=== PATIENT | male | born 1960 | race Caucasian/White ===

== ENCOUNTER 2022-02-06 17:32 | Emergency (ER) | payer OTHER ==
--- OUTSIDE RECORDS SUMMARY | 2022-02-06 17:43 | XMS REPORT | Continuity of Care Document ---
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 Haseeb medina ne -16 (Same As: l gluconate 22:00: Peridex) Herm nithin 1.2 MG/ML 00 Mouthwash Metoprolol 2019-0 No Notes: Memor ia 6-16 (Same as: l 19:59: Lopressor) [place] 00 Push over 2 minutes Mupirocin 2019-0 No 1 appl, Memor ia 0.02 MG/MG -16 Route: l Topical 19:59: NASAL, Bernardo Ointment 00 ONCE, Drug form: OINT, Start date: 02/14/20 14:59:00 CDT, Stop date: 02/14/20 14:59:00 CDT, 0 Sodium 2019- No 250 mL, Memoria Chloride -16 Rate: To l 0.9% 19:59: prime line [place] (titrate) 00 and flush 250 mL remaining blood products., Dosing Weight 78.682, kg, Route: IV, Total Volume: 250, Start Date: 02/14/20 14:59:00 CDT, Duration: 1 day, Stop date: 02/15/20 14:58:00 CDT, Replace Every: 24 hr, 0 Aspirin 81 No Notes: Do Me moria MG Enteric 16 not crush l Coated 14:00: or chew. [place] Tablet 00 (Same As: Ecotrin) Aspirin No Notes: Do Memor ia -16 not crush l 14:00: or chew. Bernardo 00 (Same As: Ecotrin) Protonix No Notes: Memoria 6-16 Tablet l 12:30: should not Bernardo 00 be chewed or crushed. (Same as: Protonix) remove No Notes: Memoria patch 16 Remove old l 07:00: patch Bernardo before applicatio n of new patch. WASTE: F/P - P Waste Black; E - P Waste Black Nicoderm No Notes: Memoria C-Q -16 (Same as: l 06:00: Habitrol) Bernardo "Remove old patch before applicatio n of new patch" WASTE: F/P - P Waste Black; E - P Waste Black atorvastati No Notes: Haseeb medina n -16 (Same as: l 02:00: Lipitor) Bernardo metoprolol No Notes: Memor ia tartrate -16 (Same as: l 02:00: Lopressor) Bernardo 00 Nicoderm No Notes: Memoria C-Q -16 (Same as: l 02:00: Habitrol) [place] "Remove old patch before applicatio n of new patch" WASTE: F/P - P Waste Black; E - P Waste Black BD Normal 2020-0 No Notes: Memori a Saline 6-16 Same as: l Flush 01:30: BD [place] 00 Posiflush Sterile Sodium 2020-0 No 250 mL, Memoria Chloride 6-16 Route: l 0.9% IV 01:30: IVPB, Bernardo 00 Start date: 02/13/20 20:30:00 CDT, Duration: 30 day, Stop date: 03/14/20 20:29:00 CDT, PRN Line Flush, 0 Heparin 60 2020-0 No Route: Memor ia unit/kg 6-16 IVP, PRN, l Bolus 00:57: 4,700 [place] (Heparin 00 unit, 4.7 Dosing mL, Drug Weight) form: INJ, PRN, Heparin Protocol, Start date: 02/13/20 19:57:00 CDT Stop date: 03/14/20 19:56:00 CDT, 30 day, 0 Heparin 30 2020-0 No Route: Memor ia unit/kg 6-16 IVP, PRN, l Bolus 00:57: 2,400 [place] (Heparin 00 unit, 2.4 Dosing mL, Drug Weight) form: INJ, PRN, Heparin Protocol, Start date: 02/13/20 19:57:00 CDT Stop date: 03/14/20 19:56:00 CDT, 30 day, 0 heparin 2020-0 No 500 mL, Memoria additive 6-16 Rate: l 25,000 unit 00:57: 18.88 Kirti nn [12 00 ml/hr, unit/kg/hr] Infuse + Premix over: 26.5 Diluent hr, Route: Dextrose 5% IV, Dosing 500 mL Weight 78.68 kg, Total Volume: 500 mL, Start date: 02/13/20 19:57:00 CDT, Duration: 30 day, Stop date: 03/14/20 19:56:00 CDT, 1.96, m2, 0 Nitroglycer 2020-0 No Notes: Haseeb medina in 0.4 MG 6-16 (Same l Sublingual 00:53: as:Nitroqu H ermann Tablet 00 ick, Nitrostat) "Do Not Crush" Sublingual tablet Zofran 2020-0 No Notes: Memoria 6-16 (Same as: l 00:52: Zofran) Bernardo 00 MEDICATION WASTE Product Size: 4 mg Product Wasted: ___ mg Tylenol 2019-0 No Notes: Do Memor ia 16 not exceed l 00:52: 4 gm/day. [place] 00 (Same as: Tylenol) Milk of 0 No Notes: Memoria Magnesia 16 (Same as: l 00:52: Milk of [place] 00 Magnesia, MOM) Morphine No Notes: Memoria 16 (Same l 00:52: as:MORPhin Bernardo 00 e Sulfate) Melatonin 2019- No Notes: Memori a -16 (Same as: l 00:48: Melatonin) Bernardo pantoprazol No 40 mg = 1 M emoria e 40 MG 6-15 tab, PO, l Enteric 23:29: Daily, 0 Deion n Coated 00 Refill(s) Tablet [Protonix] metoprolol No 25 mg = 1 Me moria tartrate 25 6-15 tab, PO, l mg oral 17:27: Q12H, 0 [place] tablet 00 Refill(s) Aspirin 81 2019-0 No 81 mg = 1 Me moria MG Enteric 6-15 tab, PO, l Coated 17:23: Daily, 0 [place] Tablet 00 Refill(s) atorvastati No 40 mg = 1 M emoria n 40 mg 6-15 tab, PO, l oral tablet 17:23: Bedtime, 0 [place] 00 Refill(s) heparin 2019-0 No 2,400 unit Haseeb medina 1000 6-15 = 2.4 mL, l units/mL 17:23: IVP, PRN, Herm nithin injectable 00 PRN solution Heparin Protocol, 0 Refill(s) Nitroglycer 0 No 0.4 mg = 1 Memoria in 0.4 MG 6-15 tab, SL, l Sublingual 17:23: Q5Min, PRN H ermann Tablet 00 Chest Pain, 0 Refill(s) Sodium 2019-0 No 750 mL, Memoria Chloride 6-15 Rate: 75 l 0.9% IV 750 17:04: ml/hr, Herm nithin mL 00 Infuse over: 10 hr, Route: IV, Dosing Weight 80 kg, Total Volume: 750, Start date: 02/13/20 12:04:00 CDT, Duration: 10 hr, Stop date: 02/13/20 22:03:00 CDT, 1.97, m2, 0 Heparin 60 2020-0 No Route: Memor ia unit/kg 6-15 IVP, PRN, l Bolus 16:46: 4,800 Bernardo (Heparin 00 unit, 4.8 Dosing mL, Drug Weight) form: INJ, PRN, Heparin Protocol, Start date: 02/13/20 11:46:00 CDT Stop date: 03/14/20 11:45:00 CDT, 30 day, 0 Heparin 30 2020-0 No Route: Memor ia unit/kg 6-15 IVP, PRN, l Bolus 16:46: 2,400 [place] (Heparin 00 unit, 2.4 Dosing mL, Drug Weight) form: INJ, PRN, Heparin Protocol, Start date: 02/13/20 11:46:00 CDT Stop date: 03/14/20 11:45:00 CDT, 30 day, 0 heparin 2020-0 No 500 mL, Memoria additive 6-15 Rate: 19.2 l 25,000 unit 16:46: ml/hr, Herm nithin [12 00 Infuse unit/kg/hr] over: 26 + Premix hr, Route: Diluent IV, Dosing Dextrose 5% Weight 80 500 mL kg, Total Volume: 500 mL, Start date: 02/13/20 11:46:00 CDT, Duration: 30 day, Stop date: 03/14/20 11:45:00 CDT, 1.97, m2, 0 Aspirin 2020-0 No 81 mg, Memoria 6-15 Route: l 16:20: CHEW, [place] 00 ONCE, Dosing Weight 80, kg, Start date: 02/13/20 11:20:00 CDT, Stop date: 02/13/20 11:20:00 CDT Saline 2020-0 No Notes: Memoria Flush 0.9% 6-15 (Same as: l 14:00: BD [place] 00 Posiflush) Sodium 2020-0 No 250 mL, Memoria Chloride 6-15 250 ml/hr, l 0.9% 14:00: Infuse [place] (Bolus) IV 00 Over: 1 hr, Route: IV, 250, Drug form: INJ, ONCALL, Priority: Routine, Dosing Weight 80 kg, Start date: 02/13/20 9:00:00 CDT, Duration: 1 doses or times, 0 Sodium 2019-0 No 750 mL, Memoria Chloride -15 Rate: 75 l 0.9% IV 750 13:40: ml/hr, Herm nithin mL 00 Infuse over: 10 hr, Route: IV, Dosing Weight 80 kg, Total Volume: 750, Start date: 02/13/20 8:40:00 CDT, Duration: 24 hr, Stop date: 02/14/20 8:39:00 CDT, 1.97, m2, 0 Protonix 2019-0 No Notes: For Mem oria 02-12 IV push l 12:30: reconstitu [place] 00 te with 10 ml 0.9% sodium chloride and push over 2 minutes. (Same as: Protonix) Nicotine No Notes: Memoria -15 (Same as: l 05:03: Habitrol) [place] 00 "Remove old patch before applicatio n of new patch" WASTE: F/P - P Waste Black; E - P Waste Black NS 1,000 mL 2019- No 1,000 mL, M emoria 15 Rate: 75 l 04:40: ml/hr, Bernardo 00 Infuse over: 13.3 hr, Route: IV, Dosing Weight 80.4 kg, Total Volume: 1,000, Start date: 02/12/20 23:40:00 CDT, Duration: 30 day, Stop date: 03/13/20 23:39:00 CDT, 1.98, m2, 0 Nitroglycer No Notes: Haseeb medina in 02-12 (Same l 04:38: as:Nitroqu Bernardo ick, Nitrostat) "Do Not Crush" Sublingual tablet Saline No Notes: Memoria Flush 0.9% 02-12 (Same as: l 04:38: BD [place] Posiflush) Omnipaque 0 No Notes: Memori a 350 02-12 (same l injectable 04:24: as:Omnipaq H ermann solution 00 ue 350). WASTE: F/P - Black; E - Municipal Trash Bin Aspirin 81 0 No 324 mg, Haseeb medina MG Chewable 02-12 Route: PO, l Tablet 00:43: Drug form: Kirti nn 00 CHEWTAB, ONCE, Dosing Weight 80.4, kg, Priority: STAT, Start date: 02/12/20 19:43:00 CDT, Stop date: 02/12/20 19:43:00 CDT metoprolol 2019-0 Yes 12.5mg Take 12.5 [facility] (LOPRESSOR) 6-15 mg by [place] 25 MG 00:00: mouth of tablet 00 daily. Medicin 12.5mg am, e 12.5mg pm metoprolol 2019-0 Yes 12.5mg Take 12.5 [facility] (LOPRESSOR) 6-15 mg by [place] 25 MG 00:00: mouth of tablet 00 daily. Medicin 12.5mg am, e 12.5mg pm Metronidazo Yes 500 mg = 1 Memoria le 500 MG 8-19 tab, PO, l Oral Tablet 17:39: Q8H, X 10 H ermann [Flagyl] day, # 30 tab, 0 Refill(s) ciprofloxac Yes 500 mg = 1 Memoria in 500 mg 8-19 tab, PO, l oral tablet 17:39: Q12H, X 10 [place] 00 day, # 20 tab, 0 Refill(s) predniSONE Yes 40 mg = 2 Me moria 20 mg oral 8-19 tab, PO, l tablet 17:39: Daily, Bernardo 00 after 2 weeks then taper by 10mg q weekly. ie 30mg/1 week then 20mg/1week then 10mg/week and stop., X 14 day, # 28 tab, 0 Refill(s) mesalamine Yes 800 mg = 2 M emoria 400 MG 8-19 cap, PO, l Enteric 17:39: TID, # 180 Herm nithin Coated 00 cap, 0 Capsule Refill(s) mesalamine No 4.8 gm, 4 Me moria 1200 MG 8-19 tab, l Enteric 14:00: Route: PO, Herm nithin Coated 00 Drug form: Tablet ECTAB, Daily, Dosing Weight 75.6, kg, Start date: 04/18/16 9:00:00 CDT, Duration: 30 day, Stop date: 05/17/16 9:00:00 CDT mesalamine No Notes: Memor ia 8-19 (Same as: l 14:00: Delzicol) Bernardo 00 Solu-Medrol No Notes: Haseeb medina 8-17 (Same l 21:00: as:Solu-ME Bernardo 00 DROL, A-Methapre d) ibuprofen No 400 mg = 2 Me moria 200 mg oral 8-17 tab, PO, l tablet 11:22: Q6H, PRN [place] Pain Famotidine No 1 tab, PO, M emoria 26.6 MG / 8-17 TID, PRN l Ibuprofen 11:22: Pain Bernardo 800 MG Oral 00 Tablet [Duexis] Flagyl No Notes: Memoria 8-17 (Same as: l 10:00: Flagyl) [place] Avoid alcohol. 200 ML No Notes: Do Memori a Ciprofloxac -17 not l in 2 MG/ML 10:00: refrigerat H ermann Injection e Ondansetron No Notes: Haseeb medina 8-17 (Same as: l 09:50: Zofran) [place] 00 MEDICATION WASTE Product Size: 4 mg Product Wasted: ___ mg Saline No Notes: Memoria Flush 0.9% -17 (Same as: l 09:50: BD [place] 00 Posiflush) Acetaminoph No Notes: Haseeb medina en 325 MG / 8-17 (Same as: l Hydrocodone 09:50: [place] Kirti nn Bitartrate 00 325/5) Do 5 MG Oral not exceed Tablet 4gm/day of acetaminop hen. Acetaminoph No Notes: Do M emoria en 8-17 not exceed l 09:50: 4 gm/day. [place] (Same as: Tylenol) Morphine No Notes: Memoria 8-17 (Same l 09:50: as:MORPhin Bernardo 00 e Sulfate) sodium No 1,000 mL, Memori a chloride -17 Rate: 125 l 0.9% 1000 09:48: ml/hr, Deion n ml INJ 00 Infuse 1,000 mL over: 8 hr, Route: IV, Dosing Weight 75.455 kg, Total Volume: 1,000, Start date: 04/16/16 4:48:00 CDT, Duration: 30 day, Stop date: 05/16/16 4:47:00 CDT Zosyn No Notes: Memoria 04-16 (Same as: l 08:04: Zosyn) Dosing based on Piperacill in component MEDICATION WASTE Product Size: 3375 mg Product Wasted: ___ mg Zofran No Notes: Memoria 04-16 (Same as: l 06:08: Zofran) MEDICATION WASTE Product Size: 4 mg Product Wasted: ___ mg Morphine No Notes: Memoria 04-16 (Same l 06:08: as:MORPhin e Sulfate) Saline No Notes: Memoria Flush 0.9% 04-16 (Same as: l 05:48: BD Bernardo 00 Posiflush) Sodium No 1,000 mL, Memori a Chloride 04-16 2,000 l 0.154 05:48: ml/hr, MEQ/ML 00 Infuse Injectable Over: 30 Solution minutes, Route: IV, 1,000, Drug form: INJ, ONCE, Priority: STAT, Dosing Weight 75.455 kg, Start date: 04/16/16 0:48:00 CDT, Duration: 1 doses or times, Stop date: 04/16/16 0:48:00 CDT Claritin 10 Yes Pascual G 10 mg, 1 Memoria mg oral 05-01 Garvin tab, PO, l tablet 04:42: Daily, 10 Deion n 54 tab, Substituti on Allowed, TAB Phenergan Yes Pascual G 25 mg, 1 M emoria 25 mg oral 05-01 Garvin tab, PO, l tablet 04:42: Q6H, PRN, Deion n 38 15 tab, Nausea, Substituti on Allowed [place] 5/325 Yes Pascual G 1-2 tab, Memoria oral tablet 05-01 Garvin PO, Q6H, l 04:42: PRN, 30 Bernardo 29 tab, Pain, Substituti on Allowed, Maintenanc e Reglan No Pascual G 10 mg, Memori a 05-01 Garvin Route: IV, l 02:51: ONCE, Dosing Weight 77.273, kg, Start date: 04/30/13 21:51:00, Stop date: 04/30/13 21:51:00 NS (Bolus) No Pascual G 1,000 mL, Memoria IV 1000 mL 05-01 Garvin Rate: l 02:51: 1,000 Bernardo 00 ml/hr, Infuse over: 1 hr, Route: IV, Dosing Weight 77.273 kg, Total Volume: 1,000, Priority: STAT, Start date: 04/30/13 21:51:00, Duration: 1 doses or times, Stop date: 04/30/13 22:50:00, Bolus DoseBolus Dose Benadryl No Pascual G 25 mg, Haseeb medina 05-01 Garvin Route: l 02:50: IVP, ONCE, Dosing Weight 77.273, kg, Priority: STAT, Start date: 04/30/13 21:50:00, Stop date: 04/30/13 21:50:00 Phenergan Yes Pascual G 25 mg, 1 M emoria 25 mg oral 4-13 Garvin tab, PO, l tablet 03:44: Q6H, PRN, Deion n 31 15 tab, Nausea, Substituti on Allowed [place] Yes Pascual G 1-2 tab, Memor ia 10/325 oral 4-13 Garvin PO, Q6H, l tablet 03:44: PRN, 30 Bernardo 29 tab, Pain, Substituti on Allowed, Maintenanc e Flagyl 500 Yes Pascual G 500 mg, 1 Memoria mg oral 4-13 Garvin tab, PO, l tablet 03:44: Q8H, 30 [place] 25 tab, Substituti on Allowed Cipro 500 Yes Pascual G 500 mg, 1 Memoria mg oral 4-13 Garvin tab, PO, l tablet 03:44: BID, 20 Bernardo 23 tab, Substituti on Allowed morphine No Pascual G 4 mg, 2 Mem oria Sulfate -13 Garvin mL, Route: l 03:21: IVP, Drug form: INJ, Q1H, Dosing Weight 81.818, kg, PRN Pain, Priority: NOW, Start date: 12/10/12 22:21:00, Duration: 3 doses or times, Stop date: Limited # of times Omnipaque 2012- No Melchor T 100 mL, Mem oria 300 12-10 400 ml/hr, l 23:22: Route: IV, Drug Form: SOLN, ONCE, Start date: 12/10/12 18:22:00, Stop date: 12/10/12 18:22:00 Zofran 2012- No Melchor T 4 mg, 2 Memori a 12-10 mL, Route: l 21:47: IVP, Drug form: INJ, ONCE, Dosing Weight 81.818, kg, PRN Nausea, Priority: STAT, Start date: 12/10/12 16:47:00 morphine 2012- No Melchor T 4 mg, 2 Haseeb medina Sulfate 12-10 mL, Route: l 21:47: IVP, Drug form: INJ, Q1H, Dosing Weight 81.818, kg, PRN Pain, Priority: NOW, Start date: 12/10/12 16:47:00, Duration: 3 doses or times, Stop date: Limited # of times Sodium No Melchor T 1,000 mL, Haseeb medina Chloride 12-10 Rate: 125 l 0.9% IV 21:45: ml/hr, [place] 1,000 mL 00 Infuse over: 8 hr, Route: IV, kg, Total Volume: 1,000, Start date: 12/10/12 16:45:00, Duration: 30 day, Stop date: 01/09/13 16:44:00 Saline No Melchor T 5 mL, Memoria Flush 0.9% 12-10 Route: l 21:45: IVP, Drug Form: INJ, Dosing Weight 81.818, kg, PRN, PRN Line Flush, Start date: 12/10/12 16:45:00, Duration: 24 hr, Stop date: 12/11/12 16:44:00 Advil 2012- Yes Substituti Memori a -12 on Allowed l 20:53: Bernardo 23 Zantac 2013-0 Yes Substituti Memor ia 4-12 on Allowed l 20:53: [place] 18 predniSONE 2011-08 Yes Fani See Haseeb medina 20 mg oral 1-25 Carlos Kent Instructio l tablet 04:38: ns, 3 po q Kirti nn 49 day for 3 days, then 2 po q day for 3 days then 1 po q day for 3 days., 18 tab, Substituti on Allowed3 po q day for 3 days, then 2 po q day for 3 days then 1 po q day for 3 days. Cipro 500 2011-08 Yes Chidi 500 mg, 1 Me moria mg oral 1-25 Rene tab, PO, l tablet 04:37: Yeaton Q12H, 6 Deion n 55 tab, Substituti on Allowed Flagyl 500 2011-08 Yes Chidi 500 mg, 1 M emoria mg oral 1-25 Rene tab, PO, l tablet 04:37: Yeaton Q8H, 30 Deion n 53 tab, Substituti on Allowed [place] 5/325 2011-08 Yes Chidi 1-2 Memor ia oral tablet 1-25 Rene tablets, l 04:37: Yeaton PO, Q4-6H, Kirti nn 47 PRN, 24 tab, as needed for pain, Substituti on Allowed, Maintenanc e Zofran ODT 2011-08 Yes Chidi 4 mg, 1 Mem oria 4 mg oral 1-25 Rene tab, PO, l tablet, 04:37: Yeaton TID, PRN, Her bellamy disintegrat 45 10 tab, ing Nausea and Vomiting, Substituti on Allowed methylPREDN 2011-08 No Chidi 125 mg, Me moria ISolone -25 Rene Route: l SODium 04:35: Yeaton IVP, ONCE, Her bellamy SUCCinate 00 Dosing Weight 81.818, kg, Priority: STAT, Start date: 07/24/12 22:35:00, Stop date: 07/24/12 22:35:00 morphine 2011-08 No Chidi 4 mg, Memoria Sulfate -25 Rene Route: l 03:02: Yeaton IVP, ONCE, Kirti nn 00 Dosing Weight 81.818, kg, Priority: STAT, Start date: 07/24/12 21:02:00, Stop date: 07/24/12 21:02:00 Omnipaque 2011-08 Yes Danish Marie 100 mL, 0 Memoria 300 1-25 ml/hr, l 02:37: Route: IV, [place] 00 Drug Form: SOLN, ONCE, Start date: 07/24/12 20:37:00, Stop date: 07/24/12 20:37:00 Sodium 2011- No Chidi 1,000 mL, Memor ia Chloride 1-24 Rene Rate: l 0.9% 23:21: Yeaton 1,000 Bernardo (Bolus) IV 00 ml/hr, 1,000 mL Infuse over: 1 hr, Route: IV, kg, Total Volume: 1,000, Bolus Dose, Priority: STAT, Start date: 07/24/12 17:21:00, Duration: 1 doses or times, Stop date: 07/24/12 18:20:00 Saline 2011-08 No Chidi 5 ml, Memoria Flush 0.9% 1-24 Rene Route: l 23:21: Yeaton IVP, Drug Deion n 00 Form: INJ, Dosing Weight 81.818, kg, PRN, PRN Line Flush, Start date: 07/24/12 17:21:00, Duration: 30 day, Stop date: 08/23/12 17:20:00 morphine 2011-08 No Chidi 4 mg, 2 Memor ia Sulfate 1-24 Rene mL, Route: l 23:21: Yeaton IVP, Drug Deion n 00 form: INJ, ONCE, Dosing Weight 81.818, kg, Priority: STAT, Start date: 07/24/12 17:21:00, Stop date: 07/24/12 17:21:00 ondansetron 2011-08 No Chidi 4 mg, 2 Me moria 1-24 Rene mL, Route: l 23:21: Yeaton IVP, Drug Deion n 00 form: INJ, ONCE, Dosing Weight 81.818, kg, Priority: STAT, Start date: 07/24/12 17:21:00, Stop date: 07/24/12 17:21:00 predniSONE 2011- Yes Tajuddin 40-30-20-1 Memoria taper daily - Qasimali 0 mg, PO, l 13:56: Vinicio Daily, [place] 00 Substituti on Allowed, 16 day uricct30 day regime Vicodin Yes Tajuddin 1-2 tab, Me moria 5/500 oral 05-26 Qasimali PO, Q4-6H, l tablet 13:53: Vinicio PRN, 30 Bernardo 31 tab, Pain, Substituti on Allowed, Maintenanc e Flagyl 500 Yes Tajuddin 500 mg, 1 Memoria mg oral 05-26 Qasimali tab, PO, l tablet 13:53: Vinicio Q8H, 42 [place] 00 tab, Substituti on Allowed, TAB Cipro 500 Yes Tajuddin 500 mg, 1 Memoria mg oral 05-26 Qasimali tab, PO, l tablet 13:52: Vinicio Q12H, 28 Deion n 48 tab, Substituti on Allowed, TAB GoLYTELY No Daljit L 4,000 ml, Memoria 05-25 Mariela Route: PO, l 21:23: Drug Form: [place] PDR/REC, Dosing Weight 72.415, kg, ONCE, NOW, Start date: 05/25/12 16:23:00, Duration: 1 doses or times, Stop date: 05/25/12 16:23:00 Vistaril 25 No Tajuddin 25 mg, 1 Memoria mg oral 05-25 Qasimali tab, l capsule 20:25: Vinicio Route: PO, Her bellamy Drug form: TAB, TID, Dosing Weight 72.415, kg, PRN Itching, Start date: 05/25/12 15:25:00, Duration: 30 day, Stop date: 06/24/12 15:24:00 Benadryl No Brent 50 mg, 2 Mem oria 05-24 Minhvu Joel tab, l 23:28: Wang Route: PO, [place] Drug form: TAB, QID, Dosing Weight 72.415, kg, PRN Itching, Start date: 05/24/12 18:28:00, Duration: 30 day, Stop date: 06/23/12 18:27:00 potassium No Caemron 40 mEq, 2 Me moria chloride 20 05-24 Amari tab, l mEq oral 14:29: Kent Route: PO, Jordy munoz tablet, 00 Drug form: extended ERTAB, release ONCE, Dosing Weight 72.415, kg, Start date: 05/24/12 9:29:00, Stop date: 05/24/12 9:29:00 NS + KCL 2011- No Cameron 1,000 mL, Mem oria 20mEq/L 05-23 Amari Rate: 100 l 1000ml 14:05: Kent ml/hr, Bernardo (Premix) 00 Infuse 1,000 mL over: 10 hr, Route: IV, kg, Total Volume: 1,000, Start date: 05/23/12 9:05:00, Duration: 30 day, Stop date: 06/22/12 9:04:00 vancomycin 2011- No Brent 250 mg, 5 Memoria 05-23 Minhvu Joel mL, Route: l 00:00: Wang PO, Drug [place] 00 form: SUSP, ABXQ6H, Dosing Weight 72.415, kg, Start date: 05/22/12 19:00:00, Duration: 30 day, Stop date: 06/21/12 13:00:00 Sodium 2011- No Cameron 1,000 mL, Memor ia Chloride 05-22 Amari Rate: 8.1 l 0.9% IV 21:00: Kent ml/hr, Bernardo 1,000 mL + 00 Infuse potassium over: 125 chloride 20 hr, Route: mEq + IV, kg, magnesium Total sulfate 1 Volume: gm 1,012, Start date: 05/22/12 16:00:00, Duration: 30 day, Stop date: 06/21/12 15:59:00 influenza 2011-0 Yes Brent 0.5 mL, Mem oria virus 05-22 Minhvu Joel Route: IM, l vaccine, 14:00: Wang Drug Form: Her bellamy inactivated 00 INJ, ONCE, Start date: 05/22/12 9:00:00, Stop date: 05/22/12 9:00:00 Flagyl 2011-0 No Brent 500 mg, Memori a 05-22 Minhvu Joel 100 mL, l 10:00: Wang Route: IV, [place] 00 Drug form: INJ, ABXQ8H, Dosing Weight 73.778, kg, Start date: 05/22/12 5:00:00, Duration: 30 day, Stop date: 06/20/12 21:00:00 influenza 2011-0 No SYSTEM 0.5 mL, Mem oria virus 05-22 SYSTEM Route: IM, l vaccine, 04:26: CINTHIADeion PARDO n inactivated 06 Start date: 05/21/12 23:26:06, Stop date: 06/20/12 23:21:06 potassium 2011-0 No Brent 10 mEq, Mem oria chloride - Minhvu Joel 100 mL, l 04:00: Wang Route: Bernardo 00 IVPB, Drug form: INJ, Q1H, Start date: 05/21/12 23:00:00, Duration: 4 doses or times, Stop date: 05/22/12 2:00:00 Saline 2011-0 No Brent 5 ml, Memoria Flush 0.9% 05-22 Minhvu Joel Route: l 03:02: Wang IVP, Drug Bernardo 00 Form: INJ, Dosing Weight 73.778, kg, PRN, PRN Line Flush, Start date: 05/21/12 22:02:00, Duration: 30 day, Stop date: 06/20/12 22:01:00 Sodium 2011-0 No Brent 1,000 mL, Haseeb medina Chloride 05-22 Minhvu Joel Rate: 125 l 0.9% IV 03:02: Wang ml/hr, [place] 1,000 mL 00 Infuse over: 8 hr, Route: IV, kg, Total Volume: 1,000, Start date: 05/21/12 22:02:00, Duration: 30 day, Stop date: 06/20/12 22:01:00 ondansetron 2011-0 No Brent 4 mg, 2 M emoria 05-22 Minhvu Joel mL, Route: l 03:02: Wang IVP, Drug Bernardo 00 form: INJ, Q6H, Dosing Weight 73.778, kg, PRN Nausea & Vomiting, Start date: 05/21/12 22:02:00, Duration: 30 day, Stop date: 06/20/12 22:01:00 morphine 2011-0 No Brent 4 mg, 2 Haseeb medina Sulfate - Minhvu Joel mL, Route: l 03:02: Wang IVP, Drug Bernardo 00 form: INJ, Q3H, Dosing Weight 73.778, kg, PRN Pain Score 4-6, Start date: 05/21/12 22:02:00, Duration: 30 day, Stop date: 06/20/12 22:01:00 acetaminoph 2011-0 No Brent 650 mg, 2 Memoria en 05-22 Minhvu Joel tab, l 03:02: Wang Route: PO, Drug form: TAB, Q4H, Dosing Weight 73.778, kg, PRN Pain/Fever , Start date: 05/21/12 22:02:00, Duration: 30 day, Stop date: 06/20/12 22:01:00 ALPRAZOLam 2011-0 No Brent 0.25 mg, 1 Memoria 05-22 Minhvu Joel tab, l 03:02: Wang Route: PO, Drug form: TAB, Q8H, Dosing Weight 73.778, kg, PRN Anxiety, Start date: 05/21/12 22:02:00, Duration: 30 day, Stop date: 06/20/12 22:01:00 temazepam 2011-0 No Brent 15 mg, 1 Me moria 05-22 Minhvu Joel cap, l 03:02: Wang Route: PO, Drug form: CAP, Bedtime, Dosing Weight 73.778, kg, PRN Insomnia, Start date: 05/21/12 22:02:00, Duration: 30 day, Stop date: 06/20/12 22:01:00 potassium 2011-0 No Brent 40 mEq, Mem oria chloride 05-22 Minhvu Joel Route: IV, l 03:02: Wang ONCE, Dosing Weight 73.778, kg, Start date: 05/21/12 22:02:00, Stop date: 05/21/12 22:02:00 morphine 2011-0 No Brent 4 mg, 2 Haseeb medina Sulfate 05-22 Minhvu Joel mL, Route: l 02:19: Wang IVP, Drug form: INJ, ONCE, Dosing Weight 73.778, kg, Priority: STAT, Start date: 05/21/12 21:19:00, Stop date: 05/21/12 21:19:00 acetaminoph 2011-0 No Gretchen S 1,000 mg, Memoria en 05-22 Tracy 2 tab, l 00:56: Route: PO, Drug form: TAB, ONCE, Dosing Weight 73.778, kg, Priority: STAT, Start date: 05/21/12 19:56:00, Stop date: 05/21/12 19:56:00 potassium 2011- No Gretchen S 40 mEq, 2 M emoria chloride 05-22 Tracy tab, l 00:53: Route: PO, Drug form: ERTAB, ONCE, Dosing Weight 73.778, kg, Priority: STAT, Start date: 05/21/12 19:53:00, Stop date: 05/21/12 19:53:00 Flagyl 2011- No Brent 500 mg, Memori a 05-22 Minhvu Joel 100 mL, l 00:52: Wang Route: IVPB, Drug form: INJ, ONCE, Dosing Weight 73.778, kg, Start date: 05/21/12 19:52:00, Stop date: 05/21/12 19:52:00 Cipro 2011- No Gretchen S 400 mg, Memoria 05-22 Tracy 200 mL, l 00:52: Route: IVPB, Drug form: INJ, ONCE, Dosing Weight 73.778, kg, Priority: STAT, Start date: 05/21/12 19:52:00, Stop date: 05/21/12 19:52:00 Omnipaque 2011- No Pascual G 100 mL, Me moria 300 05-21 Garvin 400 ml/hr, l 23:00: Route: IV, Drug Form: SOLN, ONCE, Start date: 05/21/12 18:00:00, Stop date: 05/21/12 18:00:00 morphine No Pascual G 2 mg, Memor ia Sulfate 05-21 Garvin Route: l 22:21: IVP, Drug form: INJ, ONCE, Dosing Weight 73.778, kg, Priority: STAT, Start date: 05/21/12 17:21:00, Stop date: 05/21/12 17:21:00 NS (Bolus) No Pascual G 1,000 mL, Memoria IV 1,000 mL 05-21 Garvin Rate: l 21:14: 1,000 Bernardo 00 ml/hr, Infuse over: 1 hr, Route: IV, kg, Total Volume: 1,000, Priority: STAT, Start date: 05/21/12 16:14:00, Duration: 1 doses or times, Stop date: 05/21/12 17:13:00, Bolus DoseBolus Dose Saline 2011- No Pascual G 5 ml, Memoria Flush 0.9% 05-21 Garvin Route: l 21:14: IVP, Drug Bernardo Form: INJ, Dosing Weight 73.778, kg, PRN, PRN Line Flush, Start date: 05/21/12 16:14:00, Duration: 30 day, Stop date: 06/20/12 16:13:00 ondansetron 2011- No Pascual G 4 mg, 2 Memoria 05-21 Garvin mL, Route: l 21:14: IVP, Drug Bernardo form: INJ, ONCE, Dosing Weight 73.778, kg, Priority: STAT, Start date: 05/21/12 16:14:00, Stop date: 05/21/12 16:14:00 morphine 2011- No Pascual G 2 mg, 1 Mem oria Sulfate 05-21 Garvin mL, Route: l 21:14: IVP, Drug Bernardo 00 form: INJ, ONCE, Dosing Weight 73.778, kg, Priority: STAT, Start date: 05/21/12 16:14:00, Stop date: 05/21/12 16:14:00 Cipro I.V. No Brent 400 mg, Me moria 400 mg/200 05-21 Minhvu Joel 200 mL, l mL 14:00: Wang Route: IV, Bernardo intravenous 00 Drug form: solution INJ, [id number], Dosing Weight 73.778, kg, Start date: 05/21/12 9:00:00, Duration: 30 day, Stop date: 06/19/12 21:00:00 tetanus-dip 2010- No Brittany 0.5 ml, M emoria htheria 09-06 Ronni Route: IM, l toxoids 02:08: ONCE, Bernardo adult 00 STAT, intramuscul Start ar date: suspension 09/05/10 20:08:00, Stop date: 09/05/10 20:08:00 Immunizations Ordered Immunization Filled Immunization Date Status Commen ts Source Name Name tetanus-diphtheria 2010-09-06 Completed Memori al toxoids 02:15:00 Bernardo tetanus-diphtheria 2010-09-06 Completed Memori al toxoids 02:15:00 Bernardo tetanus-diphtheria 2010-09-06 Completed Memori al toxoids 02:15:00 Bernardo Vital Signs Vital Name Observation Time Observation Value Comments Source Height 2021-07-27 06:13:00 177.8 CM Weight 2021-07-27 06:13:00 95.25 KG Systolic blood 2021-07-24 21:43:00 113 mm[Hg] [facility] Medicine Diastolic blood 2021-07-24 21:43:00 72 mm[Hg] [facility] Medicine Heart rate 2021-07-24 21:43:00 78 /min [facility] Body height 2021-07-24 21:43:00 172.7 cm [facility] Body weight 2021-07-24 21:43:00 81.647 [facility] BMI 2021-07-24 21:43:00 27.37 kg[facility] Systolic blood 2021-06-24 14:24:00 107 mm[Hg] [facility] Medicine Diastolic blood 2021-06-24 14:24:00 70 mm[Hg] [facility] Medicine Heart rate 2021-06-24 14:24:00 80 /min [facility] Body temperature 2021-06-24 14:24:00 37 Evelyn [facility] Respiratory rate 2021-06-24 14:24:00 16 /min [facility] Body height 2021-06-24 14:24:00 172.7 cm [facility] Body weight 2021-06-24 14:24:00 81.647 kg [facility] BMI 2021-06-24 14:24:00 27.37 kg/m2 [facility] Temperature Oral (F) 2021-03-11 18:30:00 98.2 F [facility] Heart Rate 2021-03-11 18:30:00 [facility] Respitory Rate 2021-03-11 18:30:00 [facility] Systolic (mm Hg) 2021-03-11 18:30:00 Haseeb rial [facility]ardo Diastolic (mm Hg) 2021-03-11 18:30:00 [facility] Temperature Oral (F) 2021-03-11 11:36:00 98.6 F [facility] Heart Rate 2021-03-11 11:36:00 [facility] Respitory Rate 2021-03-11 11:36:00 [facility] Systolic (mm Hg) 2021-03-11 11:36:00 Haseeb rial [facility] Diastolic (mm Hg) 2021-03-11 11:36:00 [facility] Temperature Oral (F) 2021-03-11 06:07:00 98.9 F [facility] Heart Rate 2021-03-11 06:07:00 [facility] Respitory Rate 2021-03-11 06:07:00 [facility] Systolic (mm Hg) 2021-03-11 06:07:00 Haseeb rial [facility] Diastolic (mm Hg) 2021-03-11 06:07:00 [facility] Systolic (mm Hg) 2021-03-04 04:39:00 Haseeb rial [facility]ardo Diastolic (mm Hg) 2021-03-04 04:39:00 [facility] Respitory Rate 2021-03-04 04:39:00 [facility] Heart Rate 2021-03-04 04:39:00 [facility] Temperature Oral (F) 2021-03-04 04:39:00 98.2 F [facility] Weight 2021-03-04 03:11:00 [facility] Systolic (mm Hg) 2021-03-04 03:11:00 Haseeb rial [facility] Diastolic (mm Hg) 2021-03-04 03:11:00 [facility] Heart Rate 2021-03-04 03:11:00 [facility] Respitory Rate 2021-03-04 03:11:00 [facility] Temperature Oral (F) 2021-03-04 03:11:00 98.1 F [facility] Systolic (mm Hg) 2020-08-25 10:27:00 Haseeb [facility] Diastolic (mm Hg) 2020-08-25 10:27:00 [facility] Respitory Rate 2020-08-25 10:27:00 [facility] Temperature Oral (F) 2020-08-25 10:27:00 98.6 F [facility] BMI Calculated 2020-08-25 09:15:00 [facility] Height 2020-08-25 08:56:00 172.72 cm [facility] BMI Calculated 2020-08-25 08:56:00 [facility] Weight 2020-08-25 08:56:00 [facility] Systolic (mm Hg) 2020-08-25 08:56:00 Haseeb rial [facility]ardo Diastolic (mm Hg) 2020-08-25 08:56:00 [facility] Heart Rate 2020-08-25 08:56:00 [facility] Respitory Rate 2020-08-25 08:56:00 [facility] Temperature Oral (F) 2020-08-25 08:56:00 98.8 F [facility] Temperature Oral (F) 2020-02-19 20:39:00 99.2 F [facility] Heart Rate 2020-02-19 20:39:00 [facility] Respitory Rate 2020-02-19 20:39:00 [facility] Systolic (mm Hg) 2020-02-19 20:39:00 Haseeb rial [facility] Diastolic (mm Hg) 2020-02-19 20:39:00 [facility] Temperature Oral (F) 2020-02-19 16:12:00 99.3 F [facility] Heart Rate 2020-02-19 16:12:00 [facility] Respitory Rate 2020-02-19 16:12:00 [facility] Systolic (mm Hg) 2020-02-19 16:12:00 H[facility]eb [facility] Diastolic (mm Hg) 2020-02-19 16:12:00 [facility] Temperature Oral (F) 2020-02-19 12:34:00 99.0 F [facility] Heart Rate 2020-02-19 12:34:00 [facility] Respitory Rate 2020-02-19 12:34:00 [facility] Systolic (mm Hg) 2020-02-19 12:34:00 Haseeb rial [facility] Diastolic (mm Hg) 2020-02-19 12:34:00 [facility] Height 2020-02-15 20:16:00 172.72 cm [facility] Height 2020-02-15 19:22:00 172.72 cm [facility] Height 2020-02-13 22:51:00 172.72 cm [facility] Weight 2020-02-13 22:51:00 [facility] BMI Calculated 2020-02-13 22:51:00 [facility] Systolic (mm Hg) 2020-02-13 20:30:00 Haseeb rial [facility]ardo Diastolic (mm Hg) 2020-02-13 20:30:00 [facility] Respitory Rate 2020-02-13 20:30:00 [facility] Temperature Oral (F) 2020-02-13 20:30:00 97.7 F [facility] Systolic (mm Hg) 2020-02-13 19:13:00 Haseeb rial [facility]ardo Diastolic (mm Hg) 2020-02-13 19:13:00 [facility] Respitory Rate 2020-02-13 19:13:00 [facility] Temperature Oral (F) 2020-02-13 19:13:00 98.2 F [facility] Systolic (mm Hg) 2020-02-13 18:15:00 Haseeb rial [facility] Diastolic (mm Hg) 2020-02-13 18:15:00 [facility] Respitory Rate 2020-02-13 18:15:00 [facility] Heart Rate 2020-02-13 16:48:00 [facility] Heart Rate 2020-02-13 12:44:00 [facility] Temperature Oral (F) 2020-02-13 12:44:00 97.4 F [facility] Heart Rate 2020-02-13 09:00:00 [facility] Height 2020-02-13 05:41:00 172.72 cm [facility] Weight 2020-02-13 05:41:00 [facility] BMI Calculated 2020-02-13 05:41:00 [facility] BMI Calculated 2020-02-13 04:38:00 [facility] Height 2020-02-13 00:24:00 172.72 cm [facility] BMI Calculated 2020-02-13 00:24:00 [facility] Weight 2020-02-13 00:24:00 [facility] Systolic (mm Hg) 2016-04-19 16:24:00 Haseeb rial [facility]ardo Diastolic (mm Hg) 2016-04-19 16:24:00 [facility] Respitory Rate 2016-04-19 16:24:00 [facility] Heart Rate 2016-04-19 16:24:00 [facility] Temperature Oral (F) 2016-04-19 16:24:00 98.2 F [facility] Systolic (mm Hg) 2016-04-19 11:06:00 Haseeb [facility] Diastolic (mm Hg) 2016-04-19 11:06:00 [facility] Respitory Rate 2016-04-19 11:06:00 [facility] Temperature Oral (F) 2016-04-19 11:06:00 97.7 F [facility] Heart Rate 2016-04-19 11:06:00 [facility] Respitory Rate 2016-04-19 08:17:00 [facility] Systolic (mm Hg) 2016-04-19 08:17:00 Haseeb [facility] Diastolic (mm Hg) 2016-04-19 08:17:00 [facility] Temperature Oral (F) 2016-04-19 08:17:00 96.9 F [facility] Heart Rate 2016-04-19 08:17:00 [facility] Weight 2016-04-16 09:51:00 [facility] Height 2016-04-16 09:51:00 172.72 cm [facility] BMI Calculated 2016-04-16 09:51:00 [facility] Weight 2016-04-16 04:41:00 [facility] Heart Rate 2013-05-01 04:53:00 [facility] Diastolic (mm Hg) 2013-05-01 04:53:00 [facility] Systolic (mm Hg) 2013-05-01 04:53:00 Haseeb rial [facility] Respitory Rate 2013-05-01 04:53:00 [facility] Respitory Rate 2013-05-01 02:11:00 [facility] Temperature Oral (F) 2013-05-01 02:11:00 98.5 F [facility] Diastolic (mm Hg) 2013-05-01 02:11:00 [facility] Heart Rate 2013-05-01 02:11:00 [facility] Systolic (mm Hg) 2013-05-01 02:11:00 Haseeb [facility] Height 2013-05-01 02:11:00 172.72 cm [facility] Weight 2013-05-01 02:11:00 [facility] Weight 2012-12-10 20:51:00 [facility] Height 2012-12-10 20:51:00 172.72 cm [facility] Weight 2012-07-24 22:45:00 [facility] Height 2012-07-24 22:45:00 172.72 cm [facility] Diastolic (mm Hg) 2012-05-26 06:08:00 [facility] Systolic (mm Hg) 2012-05-26 06:08:00 Haseeb rial [facility] Respitory Rate 2012-05-26 06:08:00 [facility] Heart Rate 2012-05-26 06:08:00 [facility] Temperature Oral (F) 2012-05-26 06:08:00 99.3 F [facility] Diastolic (mm Hg) 2012-05-25 21:09:00 [facility] Respitory Rate 2012-05-25 21:09:00 [facility] Systolic (mm Hg) 2012-05-25 21:09:00 Haseeb rial [facility] Heart Rate 2012-05-25 21:09:00 [facility] Temperature Oral (F) 2012-05-25 21:09:00 98 F [facility] Temperature Oral (F) 2012-05-25 15:54:00 99.1 F [facility] Heart Rate 2012-05-25 11:55:00 [facility] Systolic (mm Hg) 2012-05-25 11:55:00 Haseeb rial [facility]ardo Diastolic (mm Hg) 2012-05-25 11:55:00 [facility] Respitory Rate 2012-05-25 11:55:00 [facility] al [facility] Height 2012-05-22 03:10:00 172.72 cm [facility] Weight 2012-05-22 03:10:00 [facility] Weight 2012-05-21 20:54:00 [facility] Height 2012-05-21 20:54:00 172.72 cm [facility] Procedures Procedure Date / Time Performed Performing Clinician Sourc e Appendectomy [facility] Cholecystectomy [facility] Hernia repair [facility] Cholecystectomy [facility] Appendectomy [facility] Hernia repair [facility] Plan of Care Planned Activity Planned Date Details Comments Source Future Scheduled 2021-07-24 Screening for malignant [facility] 15:42:31 neoplasm of colon Medicine (procedure) [code = 565855633] Future Scheduled 2021-07-24 Pneumococcal Combined (1 [facility] 15:42:31 of 2 - PPSV23) [code = Medic ine Pneumococcal Combined (1 of 2 - PPSV23)] Future Scheduled 2021-07-24 TETANUS SHOT (ADULT) [facility] 15:42:31 [code = TETANUS SHOT Medicin e (ADULT)] Future Scheduled 2021-07-24 Hepatitis C screening [facility] 15:42:31 (procedure) [code = Medicine 659184565] Future Scheduled 2021-07-24 Human immunodeficiency B [facility] 15:42:31 virus screening Medicine (procedure) [code = 870013400] Future Scheduled 2021-07-24 ZOSTER VACCINE (1 of 2) [facility] 15:42:31 [code = ZOSTER VACCINE (1 Me dicine of 2)] Future Scheduled 2021-07-24 FLU VACCINE > 6 MONTHS B [facility] 15:42:31 [code = FLU VACCINE > 6 Medi cine MONTHS] Future Scheduled 2021-07-24 COVID-19 Vaccine (3 - [facility] 15:42:31 Booster for Pfizer Medicine series) [code = COVID-19 Vaccine (3 - Booster for Pfizer series)] Future Scheduled 2021-07-24 BMI FOLLOW UP PLAN [code [facility] 15:42:31 = BMI FOLLOW UP PLAN] Medici ne Future Scheduled 2021-06-26 Screening for malignant [facility] 16:16:23 neoplasm of colon Medicine (procedure) [code = 988973143] Future Scheduled 2021-06-26 TETANUS SHOT (ADULT) [facility] 16:16:23 [code = TETANUS SHOT Medicin e (ADULT)] Future Scheduled 2021-06-26 Hepatitis C screening [facility] 16:16:23 (procedure) [code = Medicine [id number]] Future Scheduled 2021-06-26 Human immunodeficiency B [facility] 16:16:23 virus screening Medicine (procedure) [code = 711376230] Future Scheduled 2021-06-26 ZOSTER VACCINE (1 of 2) [facility] 16:16:23 [code = ZOSTER VACCINE (1 Me dicine of 2)] Future Scheduled 2021-06-26 FLU VACCINE > 6 MONTHS B [facility] 16:16:23 [code = FLU VACCINE > 6 Medi cine MONTHS] Future Scheduled 2021-06-26 BMI FOLLOW UP PLAN [code [facility] 16:16:23 = BMI FOLLOW UP PLAN] Medici ne Encounters Start End Encounter Admission Attending Care Care Encounter Source Date/Time Date/Time Type Type Clinicians Facility Department ID 2022-01-01 Outpatient Eduardo, [facility] [id number] Common 10:32:03 [facility] 2022-01-01 2022-01-01 ambulatory [facility] [id number] Common 00:00:00 00:00:00 [facility] 2021-08-28 2021-08-28 Emergency E LORRAINE VIRIDIANA [facility] [id number] FB 00:52:00 05:57:00 ASTON 2021-07-27 2021-07-27 [id number] [facility] 06:12:00 08:57:00 [facility] 2021-07-24 2021-07-24 Office SELENA WEBB [id number] [facility] 15:18:25 16:26:55 Visit TRI AMBULATOR [id number] College Y 0.2.7.2.686 of [id number] Medi silverio 800 e 2021-07-19 2021-07-20 Outpatient E NATE [facility] MED [id number] [facility] 21:41:00 17:17:00 JONATHAN 2021-06-24 2021-06-24 Office SELENA Muniz [id number] [facility] 09:04:55 16:13:15 Visit Arash AMBULATOR [id number] College Y 0.2.7.2.686 of [id number] Medi silverio 300 e 2021-06-06 2021-06-06 Outpatient DOMINGO ROCK [facility] [id number] SLE 13:29:37 23:59:00 NEAL 2021-06-06 2021-06-06 Outpatient DOMINGO ROCK [facility] SLE [id number] SLE 13:15:27 13:14:00 NEAL 2021-04-09 2021-04-09 Outpatient SELENA MARKS BC [id number] [facility] 14:55:26 16:42:19 TRINITY Wang e of Medicin e 2021-03-11 2021-03-11 Emergency [facility]Fl[facility] [id number] [facility] 02:45:32 19:13:00 alpa Chang 14 l [facility] 2021-03-10 2021-03-11 Emergency E MARIANELA, [facility] [id number] [facility] 21:45:00 14:13:00 KRISSY 2021-03-10 2021-03-10 [facility] [id number] 16:56:00 21:15:00 RAFAEL 2021-03-04 2021-03-04 Emergency [facility] [id number] [facility] 02:46:56 04:58:00 alpa Chang 12 l [place] [facility] 2021-03-03 2021-03-03 Emergency E [id number] 21:46:00 23:58:00 2020-08-25 2020-08-25 Emergency [facility]Fl[facility] [id number] [facility] 08:53:15 10:41:00 alpa Chang 11 l [place] [facility] 2020-02-13 2020-02-19 Inpatient [facility] [id number] [facility] 22:49:00 22:56:00 alpa Chang 67 l [facility] 2020-02-13 2020-02-19 Inpatient ELOISA, [facility] MED [id number] [facility] 17:49:00 17:56:00 ESTHERWOOD 2020-02-13 2020-02-13 Observatio [facility] [id number] [facility] 00:07:14 22:16:00 n alpa Chang 10 l [place] [facility] 2020-02-12 2020-02-13 Outpatient E KATHERIN [facility] MED [id number] [facility] 23:17:00 17:16:00 AMIR 2019-03-28 2019-03-28 Outpatient C TRES [facility] RAD 700 [id number] [facility] 12:31:00 23:59:00 Ronda VELEZ [facility] 2017-03-27 2017-03-27 Outpatient C CRISTIANA MATTA [facility] RAD [id number] [facility] 09:10:00 23:59:00 [facility] 2016-04-16 2016-04-19 Inpatient nullFlavo [facility] [id number] [facility] 04:28:00 21:24:00 [facility] [place] 09 l [place]irti nn 2013-04-30 2013-04-30 Emergency nullFlavo [id number] [facility] 20:59:00 23:54:00 r [place] 08 l [facility] 2012-12-10 2012-12-10 Emergency nullFlavo [id number] [facility] 15:41:00 23:34:00 r [place] 07 l Bernardo 2012-07-24 2012-07-24 Emergency nullFlavo [id number] [facility] 16:33:00 22:59:00 r [place] 06 l Bernardo 2012-05-21 2012-05-26 Inpatient nullFlavo [id number] [facility] 15:41:00 11:35:00 r [place] 05 l [place] 2012-04-17 2012-04-17 Emergency nullFlavo [id number] [facility] 01:05:00 05:40:00 r [place] 04 l [facility] Results Test Description Test Time Test Comments Results Result Comments Source URINALYSIS 2021-07-27 08:42:00 Test Item Value Reference Range Interpretation Comme nts COLOR (test code = COLU) Yellow YELLOW CLARITY (test code = CLA) Clear CLEAR GLUCOSE UR (test code = UA GLUCOSE) Negative NEGATIVE BILI UR (test code = BILE) Negative NEGATIVE KETONES UR (test code = MIREILLE) Negative NEGATIVE SP GRAVITY (test code = SPGR) 1.020 1.005-1.030 PH UR (test code = PH) 5.0 4.5-8.0 PROTEIN UR (test code = PU) Negative NEGATIVE UROBIL UR (test code = UROQ) 0.2 EU/dL 0.2-1.0 NITRITE UR (test code = NITRITE) Negative NEGATIVE BLOOD UR (test code = UA BLOOD) Negative NEGATIVE LEUK ES UR (test code = LEUK) Negative NEGATIVE DRUGS OF [id number] 08:31:00 Test Item Value Reference Range Interpretation Comments DRUG SCRN (test code URINE DRUG SCREEN = HDOA) This is an unconfirmed screening result and should not be used for non-medical purposes CANNABINOD (test code NEGATIVE NEGATIVE = 88C) AMPHETAMINE (test NEGATIVE NEGATIVE code = 84A) BENZODIAZP (test code NEGATIVE NEGATIVE = 86A) BARBITURAT (test code NEGATIVE NEGATIVE = 85A) OPIATES (test code = NEGATIVE NEGATIVE 92B) COCAINE (test code = NEGATIVE NEGATIVE 87A) PHENCYCLID (test code NEGATIVE NEGATIVE = 66A) METHADONE (test code NEGATIVE NEGATIVE = 64A) DOAH (test code = DOAH.) *URINE DRUGSCREEN Cut-off values are as follows: Cannabinoids 50 ng/mL Cocaine 300 ng/mL Amphetamines 1000 ng/mL Phencyclidine 25 ng/mL Benzodiazepines 200 ng.mL Methadone 300 ng/mL Barbiturates 200 ng/mL Opiates 300 ng/mL CT HEAD W/O [id number] 07:19:14 [facility] SH[facility]BAZ CARTY : 1960 Sex: MEXAMINATION: CT HEAD WITHOUT IV CONTRAST.HISTORY: Altered mental status.COMPARISON: CT head 01/25/16.TECHNIQUE: Routine CT of the head was performed without intravenous contrast as per protocol. One or morethe following dose reduction techniques were used: Automated exposure control, adjustment of mA and/or kV according to patient size, and use of iterative reconstruction technique.FINDINGS: Brain Parenchyma: No hemorrhage or infarction. No mass effect or midline shift. There are low attenuation regionswithin the periventricular white matter, this is nonspecific, most commonly associated with microvascular ischemic changes. Atherosclerotic vascular calcifications.Extra Axial Spaces: Unremarkable.[place] tricular System: Unremarkable.Osseous Structures: Unremarkable.Visualized Paranasal Sinuses: Mucosal thickening involving bilateral ethmoid sinuses.IMPRESSION: No acute intracranial abnormality or he morrhage.Electronically signed by: Enriqueta Wood MD 07/27/2021 7:19 AM [facility] [id number] 07:14:00 Test Item Value Reference Range Interpretation Comments TROPONIN I (test code 6.97 pg/mL 0.00-45.20 = A84) Ref Range Change (test Please note the code = REF RANGE) change in reference range PRO TIME AND [id number] 07:12:00 Test Item Value Reference Range Interpretation Comments PT (test code = 11.3 s 9.8-13.6 TT) INR (test code = 1.0 INR) INRH (test code = SUGGESTED INRH) THERAPEUTIC RANGE FOR INR: 2.5 - 3.5 For Patients with Prosthetic Valves or Patients with recurrent Thromboembolic Events 2.0 - 3.0 For Most Other Applications PTT (test code = 32.6 s 20.2-38.0 PTT) PTTH (test code = To monitor the PTTH) effectiveness of heparin, we offer the Anti-Xa (Heparin Assay). It can be used for either unfractionated or LMW Heparin. Order Code is ANTI-XA [id number] 07:10:00 Test Item Value Reference Range Interpretation Comments ACETAMINPH (test code = <0.2 mg/dL 1.2-2.5 L 94M) Ref Range Change (test Please note the code = REF RANGE) change in reference range LIVER [id number] 07:10:00 Test Item Value Reference Range Interpretation Comments BILI TOTAL (test code 0.4 mg/dL 0.2-1.0 = 11A) BILI DIRCT (test code 0.1 mg/dL 0.0-0.3 = 12A) BILI INDIR (test code 0.3 mg/dL See_Comment [Auto mated message] = BILII) The system [employer] generated this result transmitted ref erence range: <=0.8. T he reference range was not used to interpr et this result as normal/abnormal . PROTEIN (test code = 7.2 g/dL 5.7-8.2 07D) ALBUMIN (test code = 4.7 g/dL 3.2-4.8 08D) GLOBULIN (test code = 2.5 g/dL 1.5-3.8 GLB) ALB/GLOB (test code = 1.9 1.0-2.6 AGRR) ALK PHOS (test code = 115 IU/L 46-116 35A) AST (test code = 30A) 31 IU/L See_Comment [Auto mated message] The system [employer] generated this result transmitted ref erence range: <=33. Th e reference range was not used to interpr et this result as normal/abnormal . ALT (test code = 31A) 43 IU/L 10-49 AMYLASE AND [id number] 07:10:00 Test Item Value Reference Range Interpretation Comments AMYLASE (test code = 10A) 60 U/L 30-118 LIPASE (test code = 60A) 40 IU/L 12-53 AMMONIA [id number] 07:09:00 Test Item Value Reference Range Interpretation Comments AMMONIA (test code = 54A) <10 umol/L 11-32 L [id number] 07:09:00 Test Item Value Reference Range Interpretation Comments SALICYLATE (test code = 94B) <3.0 mg/dL 15.0-30.0 L ALCOHOL BLOOD (ETOH)2021-07-27 07:07:00 Test Item Value Reference Range Interpretation Comments ETOH (test code = ETHANOL HALC) The result is to be used only for medical purposes ALCOHOL (test 213 mg/dL See_Comment H [Automated me ssage] code = 56A) The system ic h generated this result transmit renetta reference range : <=10. The refer ence range was not u sed to interpret th is result as normal/abnormal . BASIC METABOLIC [id number] 07:07:00 Test Item Value Reference Range Interpretation Comments GLUCOSE (test code 94 mg/dL 75-100 = 06D) SODIUM (test code 142 mmol/L 136-145 = 01A) POTASSIUM (test 4.0 mmol/L 3.6-5.1 code = 01B) CHLORIDE (test 110 mmol/L 98-107 H code = 04A) CO2 (test code = 23 mmol/L 20- 02A) ANION GAP (test 13.0 mmol/L code = ANG) BUN (test code = 13 mg/dL 9- 05D) CREATININE (test 1.0 mg/dL 0.7-1.3 code = 03E) GFR (test code = 80 See_Comment L [Automated GFR) mL/min/1.73m\\S\\2 message] Th e system which generated this result transmit renetta reference range : >=90. The reference range was not used to interpret this result as normal/abnormal . GFR 93 See_Comment [Automated MALTESE (test mL/min/1.73m\\S\\2 message] The code = GFRAA) system which generated this result transmit renetta reference range : >=90. The reference range was not used to interpret this result as normal/abnormal . EGFR (test code = eGFR BY EGFR) CKD-EPI CALCULATION IS NOT RECOMMENDED FOR PATIENTS UNDER 18 YEARS OF AGE. BUN/CREA (test 08-19 code = BCR) CALCIUM (test code 8.7 mg/dL 8.3-10.6 = 09D) XR CHEST 1 VIEW [id number] 07:03:26 [facility] 1960 Sex: MEXAMINATION: XR CHEST 1 VIEWLOCATION: [id number]/CLINICAL HISTORY: Altered mental statusCOMPARISON:Chest x-ray January 25, 2016.TECHNIQUE: Frontal view of the chest.FINDINGS: Cardiomediastinal silhouette: Cardiac silhouette is normal in size. 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 The regional osseous structures are intact. Thoracic spine spondylosis noted.IMPRESSION: No acute cardiopulmonary findings.Electronically signed by: Luis Enrique Tran MD 07/27/2021 7:03 AM CHEMISTRY TECHNOLOGIST (INCLUDES AUTOMATED DIFFERENTIAL)2021-07-27 06:53:00 Test Item Value Reference Range Interpretation Comments WBC (test code = WBC) 9.3 10\\S\\3/uL 4.5-11.0 RBC (test code = RBC) 4.94 10\\S\\6/uL 4.20-5.60 HGB (test code = HBG) 16.0 g/dL 14.0-18.0 HCT (test code = HCT) 46.9 % 35.0-46.0 H MCV (test code = MCV) 94.9 fL 80.0-94.0 H MCH (test code = MCH) 32.4 pg 27.0-31.0 H MCHC (test code = MCHC) 34.1 g/dL 32.0-36.0 RDW (test code = RDW) 14.4 % 11.5-14.5 PLT (test code = PLT) 203 10\\S\\3/uL 130-400 MPV (test code = MPV) 11.6 fL 9.4-12.4 NEUTROP # (test code = NE#) 6.7 10\\S\\3/uL 2.0-8.0 LYMPH # (test code = LY#) 1.6 10\\S\\3/uL 1.2-4.0 MONOCYTE # (test code = MO#) 0.7 10\\S\\3/uL 0.0-1.1 EOSINOPH # (test code = EO#) 0.2 10\\S\\3/uL 0.0-0.7 BASOPHIL # (test code = BA#) 0.1 10\\S\\3/uL 0.0-0.3 IG # (test code = IG#) 0.07 10\\S\\3/uL 0.00-0.06 H NRBC # (test code = NRBC#) 0.00 10\\S\\3/uL 0.00-0.01 NEUTROPH % (test code = NE%) 72.2 % 35.0-73.0 LYMPH % (test code = LY%) 17.1 % 20.0-55.0 L MONO % (test code = MO%) 7.5 % 2.5-10.0 EOSINOPH % (test code = EO%) 1.8 % 0.0-5.0 BASOPHIL % (test code = BA%) 0.6 % 0.0-2.0 IG % (test code = IG%) 0.8 % 0.0-0.8 NRBC% (test code = NRBC%) 0.0 % 0.0-0.2 MANDIFF (test code = MDIFF) NO NO RBC MORPH (test code = RBCMOR) NORMAL CT, SPINE, CERVICAL, WITHOUT IV [id number] 15:51:00Unlisted Reason for Exam - Click Yes and Enter Reason Below->YesUnlisted Reason for Exam->[facility] : 1960 Sex: MFINAL REPORT Examination: CT cervical spine without contrast HISTORY: Neck pain. 61-year-old male with history of C2 fractures reported on outside MRI 03/11/2021.COMPARISON:No prior imaging of the cervical spine available for comparison at the time of interpretation. TECHNIQUE: Multidetector helical axial images were obtained without contrast from the foramen magnum to T1. Coronal and sagittal reformatted images were done. Bone and soft tissue windows were evaluated. Dose modulation, iterative reconstruction, and/or weight based adjustment of the mA/kV was utilized toreduce the radiation dose to as low as reasonably achievable. FINDINGS:Alignment:0.2 cm anterolisthesis of C2 vertebral body relative to C3. Atlantodental interval is preserved. Atlantooccipital and atlantoaxial joint spaces appear preserved.Normal cervical lordosis. Facet joint alignment is preserved. Vertebrae: Persistent comminuted, vertically oriented fracture lines visible involving the left posterior vertebral body and left lateral mass of C2 and involving the left transverse foramen, left transverse process and left atlantoaxial joint, with approximately 0.2 cm gap between fracture fragments. Persistent obliquely oriented fracture line visible involving the right lateral C2 vertebral body and right lateral mass of C2 involving the right atlantoaxial joint, with approximately 0.2 cm gap between fracture fragments posteriorly. Osseous fusion across the right facet joint at C2-3. Disc spaceheights: Multilevel mild to moderate loss of intervertebral disc space height, moderately at the C5-6 and C6-7 levels. Caliber of spinal canal: Developmentally normal. Posterior fossa and craniocervical junction: Foramen magnum patent. No Chiari 1 malformation.. Soft tissues: No abnormality.. Individual intervertebral disc levels:C2-C3: Mildly degenerated disc. Patent spinal canal and foramina.C3-C4:Mildly degenerated disc. Moderate left and mild right foraminal narrowing due to uncovertebral and facet arthrosis.Central disc protrusion effaces the ventral thecal sac, without significant spinal canal stenosis.C4-C5: Mildly degenerated disc. Mild bilateral foraminal narrowing due to facet and uncovertebral arthrosis. Central disc protrusion effaces the ventral thecal sac without significant spinalcanal stenosis.C5-C6: Moderately degenerated disc. Mild spinal canal stenosis due to disc osteophytecomplex. Severe bilateral foraminal narrowing due to facet and uncovertebral arthrosis.C6-C7: Moderately degenerated disc. Mild spinal canal stenosis due to disc osteophyte complex. Severe right and moderate left foraminal narrowing due to facet and uncovertebral arthrosis.C7-T1: Mildly degenerated disc. Patent spinal canal and foramina. Visualized lung apices:Paraseptal emphysema with blebs/bullae bilateral apices. IMPRESSION: 1.Obliquely oriented fracture line of the right vertebral body and right lateral mass at C2, as well as comminuted vertically oriented fracture of the left vertebral body, lateral mass and transverse process at C2 involving the left transverse foramen. Approximately 0.2 cmanterolisthesis of C2 on C3. 2.Mild degenerative spinal canal stenosis at C5-6 and C6-7. 3.Severe degenerative foraminal narrowing bilaterally at C5-6 and on the right at C6-7. Additional multilevel moderate and mild foraminal narrowing. Signed: Dara Figueredo [facility] Verified Date/Time: 06/06/2021 15:51:33 RAD, SPINE, CERVICAL, 2 OR 3 VIEWS 2021-06-06 13:47:00Reason for Exam:->Neck pain Reason for Exam:->Closed nondisplaces fracture of second cervical vertebra with delayed healinh, unspecified fracture morphology subsequent [facility] : 1960 Sex: MFINAL REPORT Radiographs of the cervical spine three views with flexi on and extension HISTORY: PainCOMPARISON: None available. FINDINGS:Bones:No acute displaced fracture. Osseous alignment is within normal limits. Joints:Scattered degenerative change most pronounced at C5/6 and C6/7. No subluxation on the flexion or extension images. Soft tissues:The soft tissues appear unremarkable. IMPRESSION: Scattered degenerative change most pronounced at C5/6 and C6/7. Nosubluxation on the flexion or extension images. Signed: Vania Torres [facility] Verified Date/Time: 06/06/2021 13:47:22 Reading Location: [facility] Reading Room [address] [place] [address] RIPQOEIX4636-04-84 06:59:00Not Detected (03/11/21 1:59 AM)[facility] [employer] BNHRYWE0918-52-65 06:57:00Negative (03/11/21 1:57 AM)[facility] ZpnrjteCFJWMCVHFZ0688-51-21 06:57:00 Test Item Value Reference Range Interpretation Comments PT (test code = PT) 12.5 s 12.0-14.7 [facility] IrcrrxnTTFZGUYQQK1299-59-69 06:57:00 Test Item Value Reference Range Interpretation Comments INR (test code = INR) 0.94 1 0.85-1.17 [facility] WlgoackYJCJIHDESM8927-54-70 06:57:00 Test Item Value Reference Range Interpretation Comments PTT (test code = PTT) 26.1 s 22.9-35.8 [facility] VKVXZNJ5916-86-73 03:41:00<0.02[facility] CARDIAC UHQBXWS0202-41-32 03:41:0051[facility] XOVDNLE5071-43-11 03:41:0067[facility]annCHEM NTCNV1095-41-58 03:41:62119Qqedgavw HermannCHEM GUYAK6985-24-70 03:41:0016[facility]annCHE[facility] VGVZD5294-37-24 03:41:001.04 [facility] FMDXA8715-91-13 03:41:20279Nahjretg HermannCHEM PANEL 2021-03-04 03:41:004.0[facility]annCHE[facility] UUVGH2370-81-22 03:41:30239Mfqxjzzw [facility]annCHE[facility] NTXZN6309-14-42 03:41:0029[facility]annCHE[facility] MRVXX9326-99-70 03:41:008.7[facility]annCHEM OEIMZ8457-10-54 03:41:006.7[facility]annCHE[facility] LNXZG8103-48-24 03:41:003.2[facility]annCHE[facility] TNEET8851-94-03 03:41:0038 [facility]annCHE[facility] HWLRC9148-75-08 03:41:0021[facility]annCHEM PANEL 2021-03-04 03:41:43436Uqohuvwl HermannCHEM SLLEO8444-27-65 03:41:000.2[facility]annCHE[facility] QPERG4453-91-00 03:41:009.0[facility]annCHE[facility] FHSZZ0341-52-94 03:41:00 Test Item Value Reference Range Interpretation Comments B/C Ratio (test code = B/C Ratio) 15 1 6-25 [facility] NFAAT3526-85-09 03:41:003.5[facility]annCHEM PANEL 2021-03-04 03:41:00 Test Item Value Reference Range Interpretation Comments A/G Ratio (test code = A/G Ratio) 0.9 1 0.7-1.6 [facility]CHE[facility] PYWMS1035-65-36 03:41:0077[facility]annCHEM PANEL 2021-03-04 03:41:61066Yxvvgzcc UslraepOQFEUYRCNW6523-65-46 03:41:0011.2[facility] HxemuxpRTNBBPEHRF7521-30-66 03:41:004.59[facility] TiqdewwGHEKPJMMQS4992-50-43 03:41:0014.7[facility] TrqwwwsKAUWUOINSE0703-72-38 03:41:0043.6[facility] SWFPTXRKAL1300-56-68 03:41:0095.0[facility] ItoypijCMQKROATMZ4827-38-23 03:41:00 Test Item Value Reference Range Interpretation Comments MCH (test code = MCH) 32.0 pg 27.0-31.0 [facility] OttmljrEWZQAAIYVJ4628-40-41 03:41:0033.7[facility]annHEMATOLOGY 2021-03-04 03:41:0014.8[facility] FdfuqljZQZLRGTGPF2964-52-02 03:41:37032Pozioxlq QfrtpyfMITJEJAKPQ8475-63-49 03:41:0010.3[facility] AwapetgWQAWLXFKDT5634-56-49 03:41:0070.0[facility] GoyenzpUYCZETHSKU2278-38-17 03:41:0017.6[facility] QXXLNOKWTV1348-63-74 03:41:007.6[facility] PnmrbyoDYRNIFPTLB5121-12-69 03:41:004.4 [facility] FltmjetQZDYDLRJFK6734-45-02 03:41:000.4[facility] HermannHEMATOLOGY 2021-03-04 03:41:007.8[facility] YisotuvACSUALSBGF7759-54-41 03:41:002.0[facility] KeazaayCTLAQRBWVJ3259-82-85 03:41:000.9[facility] EpoawfhIVQXEPRXNA6104-31-38 03:41:000.5[facility]annCARDIAC SKXCRSG0329-34-18 09:20:00<0.02[facility] RRRWCFT3664-94-79 09:20:0074[facility]annCHEM AUSKN0861-35-83 09:20:0097[facility]annCHEM KQIIP1412-01-68 09:20:0014[facility]annCHEM SHPQS2748-72-40 09:20:001.14[facility]annCHEM AVRZG2138-88-88 09:20:77716 [facility]annCHE[facility] IBLSH5514-49-90 09:20:003.8[facility]annCHEM PANEL 2020-08-25 09:20:29590Rmyranls HermannCHEM RLSTA4439-37-11 09:20:0028[facility]annCHEM XZFZJ0770-75-00 09:20:009.2[facility]annCHEM UNUSZ9360-93-63 09:20:007.2[facility]annCHE[facility] MVANP4750-92-70 09:20:003.6[facility]annCHEM XCJGQ5302-30-84 09:20:0029[facility]annCHEM JBOOH1396-01-47 09:20:0017 [facility]annCHE[facility] FZTOZ5890-66-89 09:20:69922Nexghbzj HermannCHEM PANEL 2020-08-25 09:20:000.3[facility]annCHEM RCIDD1444-78-79 09:20:004.8[facility]annCHEM KITKE0346-88-36 09:20:00 Test Item Value Reference Range Interpretation Comments B/C Ratio (test code = B/C Ratio) 12 1 6-25 [facility] HXCXS9557-71-61 09:20:003.6[facility]annCHEM PANEL 2020-08-25 09:20:00 Test Item Value Reference Range Interpretation Comments A/G Ratio (test code = A/G Ratio) 1.0 1 0.7-1.6 [facility]CHE[facility] CKWNB5223-37-78 09:20:0069[facility]annHEMATOLOGY 2020-08-25 09:20:0011.7[facility] VmbprwpAKSJZKZKZN6053-45-84 09:20:004.43[facility] PdgbfgySHLJJTXEDR0613-55-40 09:20:0014.2[facility] RsxttjqUSCKPXBCEI3919-07-92 09:20:0041.2[facility] VmkkpzhZOYTOVHEFR8922-98-10 09:20:0093.0[facility] NEZBDYXFLH5356-00-19 09:20:00 Test Item Value Reference Range Interpretation Comments MCH (test code = MCH) 32.0 pg 27.0-31.0 [facility] WsryczmWOMIWFQNEO7324-76-42 09:20:0034.4[facility]annHEMATOLOGY 2020-08-25 09:20:0015.4[facility] HbrpdkgUMLODIIJYJ8587-11-73 09:20:17530Nwijprar MplvcfiQIHJEPCHXK2690-26-68 09:20:0010.1[facility] MbupfseAPUYPUNWFY9042-59-01 09:20:0077.8[facility] OlbgmwjIRPFNMDCEK1938-01-01 09:20:0012.6[facility] VKHHZCUDBT2361-12-91 09:20:007.1[facility] HqzzxzaQNYIPTHGDT6154-97-81 09:20:001.8 [facility] DkmctobNOSTDWTECA9669-57-72 09:20:000.7[facility]annHEMATOLOGY 2020-08-25 09:20:009.1[facility] UxbsfqsZTHOWFUUEF4156-19-65 09:20:001.5[facility] RymrknwKKLVKUWDIR4421-44-60 09:20:000.8[facility] PcnjhztLWWWYXTWNS0172-84-99 09:20:000.2[facility] NtobbiiRDBDLWMSRN0966-86-14 09:20:000.1[facility] HermannCHEM QUHSH7002-73-59 08:33:001.9[facility]annCHEM LJFCV3219-38-16 08:33:0086 [facility]annCHEM AAMAI3475-70-12 08:33:0012[facility]annCHEM PANEL 2020-02-19 08:33:000.70[facility]annCHEM XHZLB9042-91-15 08:33:50504Xtzmizjj HermannCHEM HKULW3519-67-58 08:33:004.1[facility]annCHEM KVTOD7582-65-78 08:33:99116Hvjhxxvt HermannCHEM ZBAHH6264-52-80 08:33:0027[facility]annCHEM CNFKV1622-91-20 08:33:008.6[facility]annCHEM JXBKX7809-17-46 08:33:0011.1 [facility]annCHEM TYASB2333-63-77 08:33:98197Jooilxus HermannHEMATOLOGY 2020-02-19 08:33:0071.7[facility] QnfgmpfUXUFYIVNYF9528-92-80 08:33:0014.3[facility] CowgrkrPVQPDXHKCM2701-36-67 08:33:0010.6[facility] YlqnhifWQPXFOLQDG6075-58-84 08:33:002.7[facility] MsumojcZFCHXNMTAI9124-11-16 08:33:000.7[facility] SPFXDYMYHA3774-28-89 08:33:006.3[facility] JifrmclKESKCODLMV4490-85-25 08:33:001.3 [facility] XsqrewzMTOAJDDVZB2626-25-05 08:33:000.9[facility]annHEMATOLOGY 2020-02-19 08:33:000.2[facility] ZnjaepyEOINVHSGDK2587-42-91 08:33:000.1[facility] KjbhygiTFBFNHPBSW8105-63-40 08:33:008.8[facility] HljkscaHFZOVNCGJW4820-44-37 08:33:003.11[facility] WwiykqwKOKDHVCDUQ6323-72-46 08:33:009.2[facility] JFRBHPNYGY1820-78-24 08:33:0027.9[facility] AthdcqiHGWXDJZUNF4879-56-76 08:33:00 89.6[facility] QhxxwioVUNEOOLQIA9295-64-28 08:33:00 Test Item Value Reference Range Interpretation Comments MCH (test code = MCH) 29.7 pg 27.0-31.0 [facility] QemjiwtCGWQBOCOYF2775-04-88 08:33:0033.2[facility]annHEMATOLOGY 2020-02-19 08:33:0015.6[facility] SrygwqsVHQBLVZVDZ0890-83-33 08:33:15951Hgpibnji BdfnbwuNUEKNCEBGY4413-49-76 08:33:0010.4[facility] HermannCHEM ZUFPJ3483-44-36 08:24:002.1[facility] HermannCHEM JEVNC3266-11-20 08:24:0099[facility]annCHEM EOCQZ9132-62-58 08:24:0011[facility] HermannCHEM GOOMG2830-33-36 08:24:000.60 [facility]annCHEM GICYU0854-40-12 08:24:72301Vvkablcg HermannCHEM PANEL 2020-02-18 08:24:003.9[facility] HermannCHEM IVJUI2353-57-60 08:24:54464Mlhjtfsy HermannCHEM NBJSV3145-35-79 08:24:0029[facility] HermannCHEM REMRN4727-04-89 08:24:008.3[facility]annCHEM STOJG9552-57-55 08:24:009.9[facility]annCHEM ZBNMP5901-48-53 08:24:72240Ksrqfhhk OyndmljNJHHGZXURJ5727-82-37 08:24:0076.2 [facility] ZwqfssvEQESYTAEAN4613-78-95 08:24:0011.5[facility] HermannHEMATOLOGY 2020-02-18 08:24:0010.4[facility] GxkuibtSVSSOIHUFZ9064-57-56 08:24:001.5[facility] GnubmjlBWFLXMTABQ0856-45-65 08:24:000.4[facility] ArlwddsQPMYJZVWNN9043-05-58 08:24:007.7[facility] RldpgztXARKDIKDKZ9841-29-44 08:24:001.2[facility] WZGFWRDBGN8766-55-78 08:24:001.1[facility] JruktzvWHGWZOEWTU9534-20-15 08:24:000.2 [facility] LgounvpCNMXOGYHLY7621-22-28 08:24:0010.1[facility] HermannHEMATOLOGY 2020-02-18 08:24:003.10[facility] BcmrsueDBECFIHRMB6718-71-62 08:24:009.6[facility] HfmqcyjQUKZHRTVWP9803-77-88 08:24:0027.7[facility] MstigctBYJJHKDWPU8520-81-73 08:24:0089.5[facility] VyicupdQFLKTNZKLQ1765-64-65 08:24:00 Test Item Value Reference Range Interpretation Comments MCH (test code = MCH) 31.1 pg 27.0-31.0 [facility] EkgixisLEPPTVSODT5213-13-34 08:24:0034.7[facility]annHEMATOLOGY 2020-02-18 08:24:0015.4[facility] BnptswoRJRFUCVWHE7816-83-34 08:24:85982Tudxetzl UvjltboLQSAOGEPET2406-37-86 08:24:0010.7[facility] HermannCHEM WMVMY9432-10-80 19:42:002.0[facility] XzduhgaVIQUPAQUOHCC7701-42-49 19:42:004.1[facility] CHEM WXECS6631-45-04 08:47:001.6[facility]annCHEM ZEXLN2797-37-38 08:47:36196 [facility]annCHEM AFGTX4852-22-01 08:47:0010[facility]annCHEM PANEL 2020-02-17 08:47:000.70[facility]annCHEM HFCDV5320-02-33 08:47:50421Nplxndgt HermannCHEM GDPFO1389-24-91 08:47:19130Xbhucyrl HermannCHEM EECYY7482-12-72 08:47:0028[facility]annCHEM IKGYO3586-77-24 08:47:007.9[facility]annCHEM JYVMH6689-37-30 08:47:009.9[facility]annCHEM JSCJM0733-89-24 08:47:01558 [facility]annCHEM WQCLS1739-17-48 08:47:002.0[facility]annHEMATOLOGY 2020-02-17 08:47:00 Test Item Value Reference Range Interpretation Comments PT (test code = PT) 13.7 s 12.0-14.7 [facility] MdgnyngPYFFABYWAD0945-29-65 08:47:00 Test Item Value Reference Range Interpretation Comments INR (test code = INR) 1.05 1 0.85-1.17 [facility] OsjmzkhEUZBTPNJRK2010-28-74 08:47:00 Test Item Value Reference Range Interpretation Comments PTT (test code = PTT) 32.2 s 22.9-35.8 [facility] DatyyhrUGKNYZSKJO5462-76-18 08:47:0080.3[facility]annHEMATOLOGY 2020-02-17 08:47:008.6[facility] LxirhxiECLPWGTUNS0891-32-46 08:47:0010.2[facility] MjkoxnjPNJULRNLYE7119-48-55 08:47:000.5[facility] UxfzgyeFXDPKXLPMN5959-19-79 08:47:000.4[facility] CdmqgokBMIPGOHFHU0833-39-08 08:47:008.9[facility] GGXDQKARMR4019-82-87 08:47:001.0[facility] ShaffybVKJHJOVPIG8831-59-33 08:47:001.1 [facility] HtvxhfyYNEWSTVSHI6423-99-17 08:47:000.1[facility]annHEMATOLOGY 2020-02-17 08:47:0011.1[facility] AiowkfdGZOGTTOJDJ2037-38-32 08:47:002.99[facility] AsclicrLTNIUJXAJK8954-53-23 08:47:008.9[facility] VfoxkbzPHJJZDBZAU1335-68-25 08:47:0027.2[facility] VtlsurfQTYFPQMZOD0870-58-59 08:47:0091.0[facility] NGMSBRRRRM8323-28-16 08:47:00 Test Item Value Reference Range Interpretation Comments MCH (test code = MCH) 29.8 pg 27.0-31.0 [facility] YjytpcvVRTIUMAONY4170-33-35 08:47:0032.7[facility]annHEMATOLOGY 2020-02-17 08:47:0015.4[facility] EhjrdmlQNNHCJSVIA0745-96-13 08:47:56742Hgjqgiwf UqjjcfvVURYZLMCPD1956-09-21 08:47:009.4[facility] HermannPARATHYROID PROFILE 2020-02-17 08:47:001.12[facility] HermannPARATHYROID HCUXZRR7952-15-13 08:47:00 1.12[facility] HermannCHEM NTCLG6594-13-96 08:25:004.2[facility] HermannHEMATOLOGY 2020-02-16 08:25:00 Test Item Value Reference Range Interpretation Comments PT (test code = PT) 13.7 s 12.0-14.7 [facility] IydlhkpXVUKHEYJYB8012-05-83 08:25:00 Test Item Value Reference Range Interpretation Comments INR (test code = INR) 1.05 1 0.85-1.17 [facility] UaohfgjKDPQTMXSHB3682-68-17 08:25:00 Test Item Value Reference Range Interpretation Comments PTT (test code = PTT) 31.1 s 22.9-35.8 [facility] HermannPARATHYROID BOBYTQO2646-42-17 08:25:001.10[facility] PARATHYROID RNGLDCC4711-89-03 08:25:001.08[facility] MmctopdPKRUSCVRFA4788-59-88 22:23:00 Test Item Value Reference Range Interpretation Comments PT (test code = PT) 15.3 s 12.0-14.7 [facility] CsjrxgsVPFZIOECQJ1532-49-11 22:23:00 Test Item Value Reference Range Interpretation Comments INR (test code = INR) 1.20 1 0.85-1.17 [facility] QgzvaywSFIMPPTMIF3046-82-80 22:23:00 Test Item Value Reference Range Interpretation Comments PTT (test code = PTT) 42.1 s 22.9-35.8 [facility] HermannPARATHYROID PPHHKYN6648-94-56 22:23:001.11[facility] PARATHYROID WRFEDXU9300-03-48 22:23:001.09[facility] DnslvrbIYFNQHQSQS9942-51-38 18:00:08484Loinnzph QolfnzlMFWIJJPACI4456-95-58 18:00:00Normal (02/15/20 1:00 PM) [facility] NirulrvUFWJPNMALK4945-27-82 18:00:000.0[facility]annHEMATOLOGY 2020-02-15 18:00:002+ *ABN*(02/15/20 1:00 PM)[facility]annCHEM YIEYZ1074-16-00 07:20:00 Test Item Value Reference Range Interpretation Comments B/C Ratio (test code = B/C Ratio) 16 1 02-22 [facility]annCHE[facility] KSGZX1026-85-30 07:20:006.8[facility]annCHEM PANEL 2020-02-15 07:20:003.0[facility]annCHEM LPRJR7282-67-34 07:20:003.8[facility]annCHEM QOYTU7434-62-20 07:20:00 Test Item Value Reference Range Interpretation Comments A/G Ratio (test code = A/G Ratio) 0.8 1 0.7-1.6 [facility]annCHEM IQCRB6966-92-42 07:20:0023[facility] HermannCHEM PANEL 2020-02-15 07:20:0014[facility] HermannCHEM OYTRY8318-13-29 07:20:84165Bohafbic HermannCHEM COUAQ5266-31-23 07:20:000.4[facility] CrwljbkVOZVOWYWFV8683-12-35 07:20:000.1[facility] HermannBLOOD BANK BJXDAIY5293-10-36 21:54:00Negative (02/14/20 4:54 PM)[facility] HermannBACTERIAL - GMZEWLDQ0256-53-74 21:30:00Negative (02/14/20 4:30 PM)[facility] [employer] [facility] VULFMBD0455-90-04 19:59:00Product available (02/14/20 2:59 PM)[facility] IXUURFL2312-61-61 19:59:00 Product available (02/14/20 2:59 PM)[facility] AXTPEBD0548-42-32 19:59:00Product available (02/14/20 2:59 PM)[facility] ClubNext[facility] RESULTS 2020-02-14 19:59:00Product available (02/14/20 2:59 PM)[facility] [employer] [facility] MTHJWQD8467-99-36 00:11:00Negative (02/13/20 7:11 PM)[facility] 2020-02-13 19:04:00 Test Item Value Reference Range Interpretation Comments PTT (test code = PTT) 20.0 s 22.9-35.8 [facility] AustinCclduzaBTOFNVHWVP4827-68-77 19:04:00 Test Item Value Reference Range Interpretation Comments PT (test code = PT) 12.5 s 12.0-14.7 [facility] AustinEiexncjMOBMOPBMMU9472-82-17 19:04:00 Test Item Value Reference Range Interpretation Comments INR (test code = INR) 0.93 1 0.85-1.17 [facility] AustinXdeerhoEYZUCIICSE5690-04-47 19:04:0010.6[facility] HermannHEMATOLOGY 2020-02-13 19:04:004.60[facility] KdxuwetRUPYQIOANR1225-61-81 19:04:0013.4[facility] OmqipjmRCDBYJXKWK0707-69-31 19:04:0041.1[facility] ZhgxbqcLOYBWRPYMI7315-91-08 19:04:0089.4[facility] CujgmnsUSUFROEABV7290-07-29 19:04:00 Test Item Value Reference Range Interpretation Comments MCH (test code = MCH) 29.2 pg 27.0-31.0 [facility] ZkgrnijVAXNQFKDSW8955-85-70 19:04:0032.6[facility]HE[facility]OLOGY 2020-02-13 19:04:0015.1[facility] OrzzeyoQMMBGHSUJX0963-56-46 19:04:48459Cpucxelv VlfioqeFXESRAARNV9589-17-51 19:04:0010.5[facility] SvbwbvrSQPTFOSZLX9631-49-99 19:04:0065.8[facility] PwfscbeDHYKUXGQOM7697-41-50 19:04:0023.4[facility] PGCOBSINSA5961-88-38 19:04:006.5[facility] VcfosqrUNAYEKSSFL7378-84-14 19:04:003.2 [facility] GnkpcqdZZUJJTHFJA4524-20-14 19:04:001.1[facility]annHEMATOLOGY 2020-02-13 19:04:007.0[facility] NmdpcpmDVGASTMEPM1022-45-10 19:04:002.5[facility] IplzbjjJCKOQFCICL3712-28-93 19:04:000.7[facility] JcbnfukUUKLTZMSAH7886-97-00 19:04:000.3[facility] TbkkgztXPWJMTGNGA5868-36-62 19:04:000.1[facility]annCHEM CEUQK9150-90-50 14:07:0086[facility]annCHEM SAECR8289-33-07 14:07:0012 [facility]annCHE[facility] BIWDI7290-92-99 14:07:000.85[facility]annCHEM PANEL 2020-02-13 14:07:97651Eiavcmei HermannCHEM XPTJY3214-86-77 14:07:003.9[facility]annCHEM EGTFR2914-75-58 14:07:90245Qqgasqgu HermannCHEM FRMVD7019-51-09 14:07:0027[facility]annCHEM NVHHV5540-41-25 14:07:008.9[facility]annCHEM SEWQI6658-21-08 14:07:008.6[facility]annCHEM JZLZS7713-05-67 14:07:0094 [facility] RfzbxuqJKPGPHDARJ6621-47-43 14:07:0014.0[facility] HermannIMMUNOLOGY 2020-02-13 13:47:00Not Detected (02/13/20 8:47 AM)[facility]annCARDIAC ENZYMES 2020-02-13 08:38:000.14[facility]annCHEM HLEXG1460-24-83 08:38:002.3[facility]annCHEM MWEUB2573-36-70 08:38:002.6[facility] RytrfxjTXYCLBJUMW0840-55-88 08:38:00 Test Item Value Reference Range Interpretation Comments PTT (test code = PTT) 27.4 s 22.9-35.8 [facility] PbxdmqnWLQGWWQKHS9136-85-42 08:38:00 Test Item Value Reference Range Interpretation Comments PT (test code = PT) 12.6 s 12.0-14.7 [facility] PwkzpdbANUSANTOTO9556-84-73 08:38:00 Test Item Value Reference Range Interpretation Comments INR (test code = INR) 0.94 1 0.85-1.17 [facility] HhqfybyMXWYJD3162-91-38 08:38:90324Uzlrndgo OyzqlvwFJOEVC1532-63-11 08:38:97895Krgpphlg OlonjrsXALUGP7853-71-67 08:38:0031[facility] HermannLIPIDS 2020-02-13 08:38:00 Test Item Value Reference Range Interpretation Comments CHD Risk (test code = CHD Risk) 5.58 1 4.00-7.30 [facility] CtbuzgfPUHGEN1993-26-78 08:38:62565Ueqmzcaj DrgidgcCTNPCP1736-04-85 08:38:00 Test Item Value Reference Range Interpretation Comments VLDL (test code = VLDL) 29 1 [facility]annSPECIAL WQTEZINNQ3642-75-46 08:38:005.6[facility]annCARDIAC QJCIRFJ3123-72-15 05:44:000.15[facility]annCARDIAC EJGBPQS4742-02-38 03:06:00 0.12[facility]annCARDIAC UEACKSY7051-98-18 00:50:0074[facility]annCARDIAC TBOTJFB9724-81-87 00:50:0040[facility]annCHEM GLFXB0693-60-49 00:50:0095 [facility]annCHEM MZITY1108-46-19 00:50:0016[facility]annCHEM PANEL 2020-02-13 00:50:001.22[facility]annCHEM VJUWR9742-49-29 00:50:10315Epdkcglh HermannCHEM UTMML6410-22-34 00:50:003.9[facility]annCHEM NCULR6611-87-89 00:50:55685Qfdnytey HermannCHEM ZJHCD3237-46-47 00:50:0026[facility]annCHEM FQELE5945-03-37 00:50:008.6[facility]annCHEM GHGKD5854-61-19 00:50:007.2 [facility]annCHEM WMNCX2267-39-17 00:50:003.3[facility]annCHEM PANEL 2020-02-13 00:50:0026[facility] HermannCHEM SSMSI9962-99-93 00:50:0016[facility]annCHEM ZVLNT5646-01-92 00:50:58785Rgbsnagg HermannCHEM GCWNY2983-76-17 00:50:000.3[facility]annCHEM RKQTU2103-36-02 00:50:009.9[facility]annCHEM EFRQS7322-89-75 00:50:00 Test Item Value Reference Range Interpretation Comments B/C Ratio (test code = B/C Ratio) 13 1 6-25 [facility]CHE[facility] NNITC8502-04-82 00:50:003.9[facility]annCHEM PANEL 2020-02-13 00:50:00 Test Item Value Reference Range Interpretation Comments A/G Ratio (test code = A/G Ratio) 0.8 1 0.7-1.6 [facility]CHE[facility] GEGZW6775-43-47 00:50:0064[facility]annCHEM PANEL 2020-02-13 00:50:70581Vhyanfym HkgxujkZZUEIEAVYF1443-67-48 00:50:008.9[facility] QznkhnwUZHUDKNFYF1756-44-02 00:50:004.83[facility] StcrmgjOMOTFXPMWG4379-04-16 00:50:0014.1[facility] TbrriudZKGRRDLOZZ7199-98-41 00:50:0043.2[facility] KUUIQMWRRU6336-21-54 00:50:0089.4[facility] HnekqgqNPAZMGAKZN7147-83-08 00:50:00 Test Item Value Reference Range Interpretation Comments MCH (test code = MCH) 29.2 pg 27.0-31.0 [facility] VdyxigsESTGJGIQMC9084-17-07 00:50:0032.7[facility] HermannHEMATOLOGY 2020-02-13 00:50:0015.0[facility] UwrkwubVZIQCOXXIE2775-73-01 00:50:29248Vpmunclz ZowogazOBDNAZLQPX1832-28-05 00:50:0010.2[facility] WriilgeVVCZHCKGGC6003-84-03 00:50:000.59[facility] UuidbnnZOYSFJZZGY7325-24-20 00:50:0074.0[facility] DFECBDJXJS1988-68-37 00:50:0015.8[facility] DfljibxOABXBBWBGE2701-04-90 00:50:00 6.7[facility] MyapddfKYETEWDGYV1907-89-08 00:50:002.8[facility] HermannHEMATOLOGY 2020-02-13 00:50:000.7[facility] KvpzaxbJYOOCVUSNT1849-91-74 00:50:006.6[facility] YbpwumsDVKUHJDSNX3372-64-65 00:50:001.4[facility] OfssrfcMDCQJTCKWB2251-12-65 00:50:000.6[facility] UcggjgeXHGPIGWMVX3677-11-10 00:50:000.3[facility] MYCRYCKPKR2622-25-30 00:50:000.1[facility] HermannMRI UPPER EXT JOINT W/O CONTR 2019-03-28 11:31:21Exam: MRI of the right shoulder without contrastHistory: Pain with internal derangement and rotator cuff tearLocation: E6Ajzshjtdj: High- resolution multiplanar multiecho imaging of the right shoulderwas performed without contrast.Findings:There is severe fraying with at least severe partial thickness and what appearsto be a nonretracted full-thickness tear of the distal supraspinatus tendonseen best on coronal images 5 with mild free fluid in the subacromial andsubdeltoid bursa.The infraspinatus, biceps, subscapularis, and teres minor tendons are intact.No evidence of labral tear.No evidence of frac ture or marrow edema.The acromion is type II with moderate acromioclavicular hypertrophic changesandinferior spurring creating moderate impingement in the neutral position.No evidence of intramuscularedema or atrophy.Small effusion noted. Mild glenohumeral arthrosis.Glenohumeral ligaments are intact. Impression:1. Moderate acromioclavicular impingement with nonretracted full- thickness tearof the distal supraspinatus tendon with mild free fluid in the subacromial andsubdeltoid bursa.2. Glenohumeral arthrosis with joint effusion.CT ABDOMEN AND PELVIS WITH DSGBOANG6156-46-69 10:17:09CT abdomen and pelvis with contrastLocation Code: Q1VZUCYJIE HISTORY: RT FLANK PAINCOMPARISON: NoneTe chnique: Helical CT of the abdomen and pelvis was performed followingintravenous contrast. Thin section axial, sagittal and coronal images wereobtained. One or more of the following dose reduction techniques were used:Automated exposure control, adjustment of the mA and or KV according to patientsize,and/or utilization of iterative reconstruction technique. DLP: 1186mGy-cm.FINDINGS:The lung bases are clear. The liver, adrenal glands, kidneys, pancreas, and spleen are grosslyunremarkable. Large 6 cmcyst in the upper pole of the left kidney posteriorly.The gallbladder is surgically absent.The partially opacified loops of bowel demonstrate no focal thickening ordilatation. Previous appendectomy. There is no free peritoneal air or fluid. The abdominal aorta is normal in caliber and contour. There is noretroperitoneal mass or fluid collection. The urinary bladder is unremarkable.There is no pelvicmass or fluid collection. No evidence of diverticulitis.The bones, skin, and surrounding soft tissues are unremarkable.IMPRESSION: 1. 6 cm left renal cyst.2. Previous appendectomy and cholecystectomy.No acute intra-abdominal orpelvic pathology.ELECTROLYTES 2016-04-18 12:00:009.7[facility] VeuioxuZVNOECENTTFF1526-08-87 12:00:32253Nkujpqfz EuofrfsAENYSEGSCAOT3518-33-18 12:00:23330Blqbuoms PgvptxiUOJTSXDJQPBU4988-47-90 12:00:007[facility] QftdziiDNHYCDTNPGJG0007-88-77 12:00:000.74[facility] MZNPQIZQYQDC6338-60-95 12:00:82101Dngjwbri MxamaozLZOZFNZUXPVT5357-62-42 12:00:003.7[facility] RqgblnfBCTXREQIJJYH5050-97-26 12:00:0028[facility] HIIGYQZTGARP7267-84-53 12:00:05925Azymcyzb JpxhdknAJCMNLOWYCMQ7114-07-36 12:00:007.6[facility] JoeocwtDNBBGXGHMC6620-18-63 12:00:009.9[facility] FTRFTBQKCS3380-28-53 12:00:00 Test Item Value Reference Range Interpretation Comments MCH (test code = MCH) 31.8 pg 27.0-31.0 [facility] NhdssifTCBMOOJIWV4209-73-93 12:00:0032.8[facility] HermannHEMATOLOGY 2016-04-18 12:00:0013.9[facility] LwcermlEDONYRDFBZ5032-08-92 12:00:50661Zoysfbbg YgdesfrLTDUWUNRBW1922-34-77 12:00:0096.8[facility] PyokmnmYNDJPAUPAH5503-97-55 12:00:0031.1[facility] QttrunlTGOQXVLHIS5321-83-02 12:00:0012.1[facility] ODQSAGQWRD4399-05-22 12:00:003.21[facility] WgduifsGLELFGEIDQ5358-55-01 12:00:00 10.2[facility] FhxmtvrVNKTLDISJL8090-91-42 11:08:00Negative *NA*(04/17/16 6:08 AM) [facility] AND QJZRQ5269 22:49:00Positive *ABN*(04/16/16 5:49 PM)[facility]annCHEM DWTMB9810-36-31 22:13:001.8[facility] HermannELECTROLYTES 2016-04-16 22:13:003.7[facility] HcbuwztYVOBUNVHEM6078-12-08 22:12:0027[facility] ZuzkdowHBETNVGAUK5717-08-30 22:12:0032.3[facility] PcybetxITCAUCBCLB4188-89-43 22:12:0010.8[facility] OmmeuhtKRDNUNFVAI3812-41-75 22:12:0022.4[facility] PYAJDMFXPU6160-47-36 22:12:00Negative *NA*(04/16/16 5:12 PM)[facility] LMXAPEFRRG0806-61-75 22:12:00Negative *NA*(04/16/16 5:12 PM)[facility] YFJXBADHKO8018-06-30 22:12:00Negative *NA*(04/16/16 5:12 PM)[facility] FZATTEMNJG9721-15-23 15:42:0010.9[facility] PibfmsaJLVRZZZQWM3383-34-20 15:42:00 32.6[facility] RjwnhafHNAXQMGJCD7404-49-32 07:03:00 Test Item Value Reference Range Interpretation Comments PT (test code = PT) 13.3 s 12.0-14.7 [facility] EctsjabAPXGEAMRIF0039-52-10 07:03:000.98[facility]annHEMATOLOGY 2016-04-16 07:03:00 Test Item Value Reference Range Interpretation Comments PTT (test code = PTT) 30.0 s 22.9-35.8 [facility]annCHEM PFYYQ7025-11-36 05:55:0096[facility]annCHEM PANEL 2016-04-16 05:55:000.4[facility]annCHEM NEJHH5585-92-83 05:55:000.86[facility]annCHEM TMOXH3275-96-93 05:55:0015[facility]annCHEM GJJVM7325-78-66 05:55:16649Qyhmifpv HermannCHEM JTDQR3157-56-40 05:55:13303Vxebjxjb HermannCHEM LNLGP3559-91-02 05:55:005.9[facility]annCHEM PCQNG5356-88-31 05:55:0027 [facility]CHE[facility] QKTHH4607-24-03 05:55:003.5[facility]annCHEM PANEL 2016-04-16 05:55:008.2[facility]annCHEM BNZAE7168-49-57 05:55:79225Xcntpcko HermannCHEM IHYUE1279-72-67 05:55:0015[facility]annCHEM DBGCO0861-04-61 05:55:0096[facility]annCHEM XUYRO9954-45-00 05:55:002.9[facility]annCHEM OAMYE2986-88-61 05:55:0021[facility]annCHEM AEVOR3049-06-18 05:55:009.5 [facility]CHE[facility] AFSVP4615-32-44 05:55:001.0[facility]annCHEM PANEL 2016-04-16 05:55:003.0[facility]annCHEM QGZIA5949-96-42 05:55:0017[facility]annCHEM AJAHL9388-26-92 05:55:0073[facility] KujusfmMKUBWHEYON3645-51-29 05:55:000.1[facility] XkelkivGQPIBSKMGS2794-56-67 05:55:000.3[facility] MGEEYSDXXQ2053-74-05 05:55:000.7[facility] QisjgrnRDVJLFXXFC9720-51-52 05:55:00 14.4[facility] WamrkejKSXFEVCVCW1195-19-62 05:55:000.5[facility] HermannHEMATOLOGY 2016-04-16 05:55:003.1[facility] WzzentlHUEREAQTUO8850-42-24 05:55:006.3[facility] FqgodzvMWFGUWMRYO0939-83-74 05:55:0075.7[facility] TzkigfgQHMVPWXGYP7026-86-31 05:55:001.5[facility] OvrlbhxEXHNJZKEMB1524-05-58 05:55:008.0[facility] NUYWEORADK6252-16-73 05:55:0013.8[facility] WrxeujrHBVTGJBRTZ8548-91-73 05:55:00 33.6[facility] RrqnbkgEZWFYXXWEF2241-01-78 05:55:00 Test Item Value Reference Range Interpretation Comments MCH (test code = MCH) 31.8 pg 27.0-31.0 [facility] DhvgxftQFYGPXRLFI6833-38-93 05:55:0094.7[facility] HermannHEMATOLOGY 2016-04-16 05:55:009.9[facility] DogdlvbJOXBBCPSFM9998-08-58 05:55:13869Yqpxxvxb CiqlmrrTQVLJCGEBZ4294-56-83 05:55:003.77[facility] GeqjyasYDFKRCKKIB5736-45-88 05:55:0010.6[facility] GFNPM8206-98-14 05:55:00Negative (04/16/16 12:55 AM)[facility] PGSCP0181-72-48 05:55:00Negative (04/16/16 12:55 AM)[facility] UNFXM1644-19-03 05:55:00Yellow *NA*(04/16/16 12:55 AM)[facility] HHLVA8893-89-66 05:55:00Negative (04/16/16 12:55 AM)[facility] NGAAR1222-61-05 05:55:00Negative (04/16/16 12:55 AM)[facility] SGJZE8924-97-33 05:55:00Negative *NA*(04/16/16 12:55 AM)[facility] TWNWV2513-88-50 05:55:00 Test Item Value Reference Range Interpretation Comments UA pH (test code = UA pH) 6.0 1 5.0-8.0 [facility] SKNEI1279-10-00 05:55:00>=1.030 *ABN*(04/16/16 12:55 AM)[facility] GJVKB0526-22-42 05:55:00Clear (04/16/16 12:55 AM) [facility] KUJXU8315-61-73 05:55:000.2[facility] BCKKR0207-01-76 05:55:00Negative (04/16/16 12:55 AM)[facility] RXPMX2810-20-94 05:55:00Small *ABN*(04/16/16 12:55 AM)[facility]annCHEMISTRY 2013-05-01 03:00:009.8[facility] CqzsgduCFYMHYESZ9770-30-37 03:00:008.5[facility] NhoxghjBNNCHCEHM5796-46-50 03:00:0030[facility] KshkfaoKEDPWLXQP7027-42-72 03:00:0096[facility] WexvcczJHYJMOIYL6578-95-13 03:00:003.8[facility] YLSNNJIHK0298-15-40 03:00:99175Dmoffpfm GlyiyyqVWQHLYPHR5865-59-13 03:00:53668 [facility] WccfyeuTLNCELDXO8385-86-50 03:00:0012[facility] HermannCHEMISTRY 2013-05-01 03:00:0091[facility] HicsbvrWVCNZDKKH6867-94-99 03:00:000.9[facility] PsgvdajVCVZYDYYWI5376-48-32 03:00:49336Nfiexovi PsrbipvQHTZVCHQYW2471-86-26 03:00:008.9[facility] BsrrmgrDVNDZAHNBM2339-07-68 03:00:0020.8[facility] TJZPEBLFCY3079-59-54 03:00:0031.9[facility] IaqjovbPEUADTTXUI3549-32-08 03:00:00 30.9[facility] JfmddqqZXSPNUNDTD5610-07-46 03:00:009.8[facility]annHEMATOLOGY 2013-05-01 03:00:003.92[facility] QgjpmsrLJMJXXANMO8128-21-54 03:00:009.3[facility] XvytkxrTHSOUBHNCZ4227-59-52 03:00:00 Test Item Value Reference Range Interpretation Comments MCH (test code = MCH) 25.1 pg 27.0-31.0 L [facility] FkarzxrZWXCMNCJZU6868-64-42 03:00:0078.8[facility]annHEMATOLOGY 2013-05-01 03:00:00Slight *ABN*(04/30/2013 22:00:00)[facility]annHEMATOLOGY 2013-05-01 03:00:00Slight (04/30/2013 22:00:00)[facility]annHEMATOLOGY 2013-05-01 03:00:001+ *ABN*(04/30/2013 22:00:00)[facility]annHEMATOLOGY 2013-05-01 03:00:001.3[facility] PucsyiiAEPPLXSICS6628-08-85 03:00:006.6[facility] ZjfqhyyTSVYYDJNUR9226-53-67 03:00:0013.9[facility] OarqgspAIKIRYPCKZ1044-47-80 03:00:000.1[facility] CrufgalQLJVMPFLVQ2645-76-73 03:00:000.5[facility] TGJDDNIXLV9500-14-98 03:00:000.8[facility] GmhdykqLNRXPABAIE7041-87-83 03:00:000.7 [facility] JqginrzBQHGYRESHA5985-24-58 03:00:005.7[facility]annHEMATOLOGY 2013-05-01 03:00:008.7[facility] YevxygtGRRHYGXKMD2834-02-72 03:00:0071.0[facility] OaotvjfGMUAYIFUKF7690-55-60 00:55:00Occasional /HPF (12/10/2012 19:55:00) [facility] IojbznpIJPSJSPZKK5372-43-72 00:55:000-2 /HPF (12/10/2012 19:55:00) [facility] UtwslevSDIEXWLTYB0246-45-82 00:55:00Negative (12/10/2012 19:55:00) [facility] PgkoadyAEFLHHTFRR1121-81-36 00:55:00 Test Item Value Reference Range Interpretation Comments UA pH (test code = UA pH) 7.0 1 5.0-8.0 N [facility] LdgugmvMYHHRLPDIA6179-54-39 00:55:00Negative (12/10/2012 19:55:00) [facility] FhnmjhqUZHSNWUEFQ0065-41-71 00:55:00Negative *NA*(12/10/2012 19:55:00) [facility] TbryafmQCFIMZLYOM0053-59-86 00:55:00Negative *NA*(12/10/2012 19:55:00) [facility] QllcjseXKTFWWJPJO0919-90-46 00:55:000.2[facility]annURINALYSIS 2012-12-11 00:55:00Negative (12/10/2012 19:55:00)[facility]annURINALYSIS 2012-12-11 00:55:00Performed (12/10/2012 19:55:00)[facility]annURINALYSIS 2012-12-11 00:55:00Occasional /LPF (12/10/2012 19:55:00)[facility] ZJCRKHYMJD5192-88-35 00:55:00Negative (12/10/2012 19:55:00)[facility] KNQXMQWLDA5334-50-82 00:55:000-2 /HPF (12/10/2012 19:55:00)[facility] DGLVZJCPLV2571-78-46 00:55:00Negative (12/10/2012 19:55:00)[facility] BSAZWWZJAL2068-49-83 00:55:00Clear (12/10/2012 19:55:00)[facility] UFTQKGOYPG9313-27-72 00:55:00Yellow *NA*(12/10/2012 19:55:00)[facility] NZCIVRPJG4966-52-74 22:20:0078[facility] BwwsvchUPLXMUJHO9189-37-81 22:20:0012 [facility] HizucluEVMXVZGND4611-78-24 22:20:004.5[facility] HermannCHEMISTRY 2012-12-10 22:20:0012.8[facility] TapnzzsHWTQWCSGS6116-03-25 22:20:000.6[facility] SeihuwzLYKLEEKHR7480-70-98 22:20:0086[facility] EevihxhHVJUQZLIO1012-87-37 22:20:001.0[facility] AzrwyliSYXMVDDYT0509-18-49 22:20:44019Gmkywisl [facility] DCJNKJEPW7198-27-67 22:20:0087[facility] NyyudvlVEEIXLNUH4441-47-89 22:20:0028 [facility] GwcanlvVMRCMTLRM3092-57-14 22:20:003.8[facility]annCHEMISTRY 2012-12-10 22:20:000.2[facility] BqlangeOHETAYUCO5411-31-78 22:20:0012[facility] FflkzccVXIEPFGLE5568-85-58 22:20:008.6[facility] GageilxSQUEGFQBX5552-01-15 22:20:70458Tpqglzas PeydebsGNEANEWQK9013-68-57 22:20:008[facility] HONUYQGFU9355-98-53 22:20:0012[facility] LplfkidEUAYBEITA4821-99-24 22:20:007.1 [facility] LhtsfsoTGOUEKUGP2448-69-48 22:20:0099[facility]annCHEMISTRY 2012-12-10 22:20:002.6[facility] VdpvabfOOJPNQPQFL5947-21-69 22:20:007.5[facility] UbfxcnaMQRFHCMDXL7042-53-59 22:20:000.8[facility] UlqjwdmZUIXSBHXUU9634-95-30 22:20:007.3[facility] XiabakkXCXPFNSJNM0637-73-45 22:20:001.3[facility] FXURVWJJFX0067-12-32 22:20:0012.3[facility] WxseglnXVJFALNOMA5181-99-87 22:20:00 1.0[facility] UmdrrbiFEHNVYOGLR0709-25-65 22:20:000.8[facility]annHEMATOLOGY 2012-12-10 22:20:000.1[facility] DvtnectPQSYFMDFCP9743-69-33 22:20:0069.8[facility] DbnkeblLVNWWVPNJZ7088-02-51 22:20:009.6[facility] AthtvdkFDJBQUYGTL7293-15-00 22:20:0010.5[facility] IrexaaxFINKNHYTXK8051-84-24 22:20:76339Wsfvofdc [facility] IOUMGNXXFB4159-08-41 22:20:0017.4[facility] YrxodslGJMQXMRQLI4752-59-47 22:20:00 8.7[facility] DkzpeogHDGZUFZQSE3144-12-01 22:20:0031.2[facility]annHEMATOLOGY 2012-12-10 22:20:0010.2[facility] MjdxbpyAYOGZSEBFH4299-42-46 22:20:003.74[facility] GvvqubsYCIAGSELEF9486-40-50 22:20:00 Test Item Value Reference Range Interpretation Comments MCH (test code = MCH) 27.3 pg 27.0-31.0 N [facility] VfgbhfvBGEDDDFHKZ1633-38-73 22:20:0083.3[facility]annHEMATOLOGY 2012-12-10 22:20:0032.8[facility] ZoceztsVNEXUMJPQL3051-69-98 01:50:003-5 /HPF *ABN*(07/24/2012 19:50:00)[facility] RiqvrlzAKVRKAOOMD3997-98-78 01:50:00Rare /LPF (07/24/2012 19:50:00)[facility]KzdielrYZLAAQXXXW2391-97-66 01:50:00Trace *ABN*(07/24/2012 19:50:00)[facility] AustinCsuruijADOWITWJYT8053-27-84 01:50:00 Occasional /HPF (07/24/2012 19:50:00)[facility] AustinJnyrecfAAMCAMHMOX2119-82-57 01:50:000-2 /HPF (07/24/2012 19:50:00)[facility] AustinIwjdizzXVINROLYQX6876-58-34 01:50:00Performed (07/24/2012 19:50:00)[facility] AustinReqzjobTCFTHSJQRA1510-30-57 01:50:000.2[facility] UzndrosYHIGHXENOZ2936-28-51 01:50:00Negative (07/24/2012 19:50:00)[facility]xyFMLDSGCPOA2977-43-01 01:50:00Negative (07/24/2012 19:50:00)[facility] HospitalZkwbuwdQFQGEPIAZG1255-17-08 01:50:00Negative (07/24/2012 19:50:00)[facility]ihqfqgYWVMFMLSXJ9620-77-68 01:50:00 Test Item Value Reference Range Interpretation Comments UA pH (test code = UA pH) 6.5 1 5.0-8.0 N [facility] HospitalFsxuxrlYFARVTSKHC2719-36-03 01:50:00Negative (07/24/2012 19:50:00) [facility] AustinUljzyacLZEHMDTQRK5309-35-84 01:50:00Negative *NA*(07/24/2012 19:50:00) [facility] HospitalApfeibkZXKNHAUDHE6372-94-16 01:50:00Negative *NA*(07/24/2012 19:50:00) [facility] AustinXgvbazkVQKIAIPHWH6712-82-58 01:50:00Clear (07/24/2012 19:50:00)[facility] HospitalIncazelBBCVNSXFKX1619-47-91 01:50:00Yellow *NA*(07/24/2012 19:50:00)[facility] AustinPwqrptqRIKVCRXKN5521-55-37 23:25:0030[facility] BghwyepSYJPYETYE2477-72-15 23:25:0072[facility] ObymdjdAQBHXBZNJ8556-04-37 23:25:009.8[facility] PTCVGDZMW4623-09-02 23:25:0011[facility] BpqaawgSRWOMQKCK4537-85-46 23:25:004.2 [facility] LppwrekWOJJTCTOS0909-83-06 23:25:000.7[facility] HermannCHEMISTRY 2012-07-24 23:25:23655Hmzonhii MryfzzmCOOQRECMP0948-32-24 23:25:49314Gncpdmbs YalkvsvJZADZXVYD5614-26-76 23:25:000.4[facility] UfcjwmwCHTVROXGH0406-04-52 23:25:0028[facility] NllxgnoRGTMGMPHQ9281-16-69 23:25:0013[facility] VAATVKOJU3643-23-99 23:25:002.8[facility] KzulqxtJKORQGTJX7343-73-12 23:25:0026 [facility] EbadzfwUMPBLCNIK9544-17-40 23:25:008.7[facility] HermannCHEMISTRY 2012-07-24 23:25:007.0[facility] OkdmmnbKGUGOGYBO8052-28-24 23:25:008[facility] VvlroxmRVZHEJQHM7416-81-58 23:25:000.7[facility] VdvlcyeQXHWTHXKF7990-20-43 23:25:18025Fxtkqjnx HcrkhzaZAJWQHTVZ7462-77-74 23:25:0088[facility] CQIBSBIIT6514-42-94 23:25:38319Jslvrywm GyfuktwPLGKHFOCE8632-36-20 23:25:003.8 [facility] RwhizzhFZYPWUAMKX0439-63-72 23:25:000.3[facility]annHEMATOLOGY 2012-07-24 23:25:0079.0[facility] YiskyizDPHTZJQTIV4613-17-78 23:25:000.7[facility] ScelqysLNVPJDGWXV0689-02-75 23:25:000.0[facility] OuviaocCNNVPTZHAO3155-24-35 23:25:002.0[facility] FdnlzujJLMJPDJBCG0397-53-38 23:25:005.0[facility] XACRMSBSEP9613-13-67 23:25:003.0[facility] TbsgeerIXBPWAFMZX7738-60-48 23:25:00 11.0[facility] FnqaxnsIOUNTRWKPJ7543-48-88 23:25:00Slight *ABN*(07/24/2012 17:25:00)[facility] VwzmgucFGXVHPRWTY9028-17-01 23:25:00Normal (07/24/2012 17:25:00)[facility] AnhekxeBULXCRQMOB8541-29-51 23:25:00 Test Item Value Reference Range Interpretation Comments Tot Cell Ct (test code = Tot Cell Ct) 100 1 [facility] QupsldvCZLKMHKOEY5336-38-65 23:25:0011.2[facility] HermannHEMATOLOGY 2012-07-24 23:25:001.5[facility] CnqgslnMBGHWRLFQX1876-96-33 23:25:008.6[facility] BdnpbujRCWTXDWUYZ5677-08-92 23:25:78430Kfsbftgc XpejnfxRWPCZRJSPA4102-94-29 23:25:0016.8[facility] RdhwstpMYFTHIDTJU1754-51-38 23:25:0033.2[facility] ZANPCXRVWA8950-77-23 23:25:00 Test Item Value Reference Range Interpretation Comments MCH (test code = MCH) 29.1 pg 27.0-31.0 N [facility] KglctqkRKLNHMTBIN0135-77-92 23:25:0087.6[facility]annHEMATOLOGY 2012-07-24 23:25:0036.1[facility] RkwmztoZQDQYWTSRP2991-15-69 23:25:0012.0[facility] McmhyiyIBXAXLAWDW7526-83-52 23:25:004.12[facility] TbtjldxRURYKFFUDE3141-34-53 23:25:0013.6[facility] AvdvcopDLBUWAJXJ2249-64-11 10:55:006[facility] LYXFZOMXF3952-80-08 10:55:000.9[facility] AuumnlnSWXTGDQNW0691-69-14 10:55:97503 [facility] TendinrUGPJVJEYO3348-01-21 10:55:005.7[facility]annCHEMISTRY 2012-05-25 10:55:000.6[facility] KtoqtbuHVLEDVJWL6825-17-18 10:55:003.5[facility] OcultjrSKJFUVXFM2263-65-25 10:55:008[facility] VomldifHLTWMSISH6369-34-92 10:55:00 28[facility] GepqcyzVQQWHYISL8156-38-18 10:55:007.9[facility]annCHEMISTRY 2012-05-25 10:55:003.5[facility] VkfwrasDBWZADCPO9551-14-05 10:55:07466Niijokgz UqwblptAKJYNLSJW5095-60-39 10:55:0096[facility] EfsfudfEXWSYUSOF3316-77-83 10:55:0096[facility] LfbybwsAISENMAMI0885-84-10 10:55:000.4[facility] SMIVHLTNW2865-47-92 10:55:002.2[facility] RmzooaxOCVJVEDAX0050-56-61 10:55:0021 [facility] PbxrrhrDEWOIAUYR5180-41-73 10:55:0010.5[facility]annCHEMISTRY 2012-05-25 10:55:007[facility] WduleraVXAPPAWRJ4159-11-47 09:00:009[facility] TpkqbdyBPILSISNY8048-08-49 09:00:0012.3[facility] YcduuyfLEFJEHUWL8607-29-62 09:00:007[facility] QpgdjxlMBIEZPAJT8817-51-49 09:00:000.8[facility] JYHAXFOZT8986-42-35 09:00:0093[facility] RzxaywqPILXUENRB0550-96-82 09:00:005.7 [facility] MsqdpvsMPVTMTDBT9977-40-11 09:00:002.1[facility]annCHEMISTRY 2012-05-24 09:00:75913Wznaexvj VdkihhfGXUBSETPC8531-90-67 09:00:003.3[facility] AmhxlzrAOLEFIOZM6850-96-33 09:00:007.7[facility] CdljhqjMFEHKCBCY3108-23-91 09:00:008[facility] SoymgjtFMPWIXCZL0280-54-81 09:00:000.2[facility] NBVNEDJWT4533-43-64 09:00:93857Yhzvcnuc JlqsfifPECTJPQHG4649-90-42 09:00:0027 [facility] LqmtiuaPZYCNFMEP9277-99-06 09:00:0023[facility]annCHEMISTRY 2012-05-24 09:00:53429Bkbmrpll LotxyljCZLGQJGQVR7150-05-39 09:00:0090.5[facility] JcgzhjtFEKLVWZKCJ1908-83-93 09:00:0033.1[facility] BzvmagvIFDHNLWNCH9470-99-68 09:00:00 Test Item Value Reference Range Interpretation Comments MCH (test code = MCH) 30.0 pg 27.0-31.0 N [facility] LmdddhrGDPACNIEZN9319-96-29 09:00:0010.1[facility]annHEMATOLOGY 2012-05-24 09:00:0030.6[facility] EtoujxaLQNXMZUALW8940-79-81 09:00:009.4[facility] YjfrejnIRNNKJWCXQ0449-49-56 09:00:81619Qszfvdvh TchuhvmGGIDAIXURH9260-41-94 09:00:0015.8[facility] UotihweVSYGUERISY0642-84-24 09:00:003.38[facility] SIOAJNYADM5953-18-79 09:00:0010.5[facility] FgpeyoePVTECUQJLR9548-51-27 09:00:00 Normal (05/24/2012 04:00:00)[facility] GlpcvaaXWZVRBCAHY6932-28-12 09:00:000.0 [facility] GhgkgaoOMYEMKDJGT9314-12-17 09:00:00 Test Item Value Reference Range Interpretation Comments Tot Cell Ct (test code = Tot Cell Ct) 100 1 [facility] BiqbnbgDKFYARPUQC7701-33-87 09:00:00Normal (05/24/2012 04:00:00) [facility] VibvonyYZAPGGHAVM1552-32-02 09:00:000.9[facility]annHEMATOLOGY 2012-05-24 09:00:0058.0[facility] DsobtanQNYVIPJBVW2591-71-29 09:00:0026.0[facility] ZyfxsbeMAWCLAVPBW4199-64-66 09:00:000.3[facility] VoscgtuKNPIATHELZ4657-37-88 09:00:000.4[facility] WbymyfbGSQASTRDVG3371-83-59 09:00:009.0[facility] AGPQQBRELA8129-86-89 09:00:003.0[facility] DdmsgvsKAHVATRSZJ5290-73-25 09:00:004.0 [facility] YpvkjajBEOVRXZJXR8831-25-75 09:00:008.8[facility]annCHEMISTRY 2012-05-24 09:00:003.6[facility] YbmeeepFWRGKXLAV7571-42-79 09:00:000.6[facility] LyjcznaFHDUSQYCW8334-02-99 06:30:91274Pmtzqfro IoayfosYZVJGHPCS3473-42-39 06:30:80460Njlbgmly QqfjgemSDUPBWBPX7236-93-92 06:30:009[facility] GITCBDRSY2804-63-76 06:30:004[facility] YyvkpbkKDGALHCEZ2361-72-82 06:30:837911 [facility]annPARASITOLOGY - UDOPECDQ6813-91-75 22:30:00Negative (05/22/2012 17:30:00)[facility] JpiikluHHHOVQSWU5869-57-27 10:17:001.6[facility] AUIDZHNNB4908-58-95 10:17:0047[facility] EogdmggBWDAFLTDP0538-96-87 10:17:000.7 [facility] ExgkrcmEDOZLRBGI3095-25-77 10:17:0056[facility]annCHEMISTRY 2012-05-22 10:17:02168Oeqcttef KuogukuFGOGWVTYN0474-70-80 10:17:000.5[facility] TglmoalEQSGQJDZN4937-58-11 10:17:006[facility] HnahciaWBIUXMREJ0733-42-98 10:17:00 6.1[facility] PwoqpuqPQUDHFGOW0926-97-47 10:17:002.5[facility]annCHEMISTRY 2012-05-22 10:17:0023[facility] BjdgafhCIPXNLEDG5271-54-08 10:17:0012.5[facility] JgpapwuHCOIBPNWI8960-98-48 10:17:007.9[facility] MpozkrcVOFYINFNE7179-47-49 10:17:005[facility] TwwsradGLWBXFGGN7690-89-75 10:17:000.8[facility] EUFRDFWTW0727-48-04 10:17:85012Sfqrihfn XodfrbaMYXEBVDTY5138-78-14 10:17:003.6 [facility] ObmoovyHXOCJAZOS3297-40-33 10:17:93983Ygbpaeew HermannCHEMISTRY 2012-05-22 10:17:003.5[facility] SqfzgtrLRTRKOIBX0514-77-94 10:17:91662Ntiaqgpq LyrvdakSHSJWOTNES5358-03-19 10:17:0010.9[facility] KjbrxqoRJPILKBWCH5177-43-39 10:17:0010.9[facility] CuorzcoOZZWZXTGHG9041-25-05 10:17:003.69[facility] RXIEWJBGFZ8456-50-08 10:17:00 Test Item Value Reference Range Interpretation Comments MCH (test code = MCH) 29.6 pg 27.0-31.0 N [facility] QratobjVRBUKPTHLV9691-39-03 10:17:0090.4[facility]annHEMATOLOGY 2012-05-22 10:17:0033.3[facility] QlsgkquIAGWQCBOZF7635-68-82 10:17:008.6[facility] OsefgrgHXJYQKAWXG8516-14-98 10:17:37342Ksifdmui WtojmdeONWRJJAHVH9488-90-66 10:17:0015.7[facility] LhllluxXGSKPLVXCG7778-70-12 10:17:0032.8[facility] NPCFCKACIG7565-21-88 10:17:00Normal (05/22/2012 05:17:00)[facility] DGTWVXLOGX0545-83-49 10:17:006.9[facility] WkhtbhvVJONDUBFFV5160-93-93 10:17:00 79.8[facility] AxmdhnlJLUFJSSVWD9059-39-61 10:17:00Normal (05/22/2012 05:17:00) [facility] XtetxztRWJSKXNEEM9659-13-05 10:17:000.8[facility]annHEMATOLOGY 2012-05-22 10:17:000.1[facility] QlmweexRXIKQXYLWE8279-32-87 10:17:0011.6[facility] XgkfwilOSOSGIYEEB8255-28-22 10:17:000.1[facility] NphrjsjVWFXNJBSXV1771-22-36 10:17:001.3[facility] BdobkpdGEKCATUWDP7785-40-69 10:17:000.6[facility] INBGRNOPNU4483-56-83 10:17:008.7[facility] LvnakjjTVYECFYVVH5088-04-19 10:17:001.1 [facility] MdjicefWJARPGXGK5629-88-95 09:55:0023.1[facility]IS 2012-05-21 21:35:00Occasional /LPF (05/21/2012 16:35:00)[facility] ZOFKBWGKKV5009-24-64 21:35:000-2 /HPF (05/21/2012 16:35:00)[facility] OKKLRUEJIT6133-98-20 21:35:000-2 /HPF (05/21/2012 16:35:00)[facility] VZOQJUTONP7364-35-91 21:35:00Occasional /HPF (05/21/2012 16:35:00)[facility] CzhzrpfBELOYFJYKL1544-99-67 21:35:00Negative (05/21/2012 16:35:00)[facility] NsddonwUOPREEOLHW2974-15-49 21:35:00Negative (05/21/2012 16:35:00)[facility] QydeggnVNWXLRRFMG4649-12-06 21:35:00Negative (05/21/2012 16:35:00)[facility] ZtpcxjpQKFEJVDIWP4569-46-37 21:35:00Negative (05/21/2012 16:35:00)[facility] BogpvboAVBVBIRZQL2140-63-42 21:35:00Trace *ABN*(05/21/2012 16:35:00)[facility] VnhnlzlZKJDMKQRYZ4316-24-06 21:35:00 Test Item Value Reference Range Interpretation Comments UA pH (test code = UA pH) 6.0 1 5.0-8.0 N [facility] GwksjowIKJORQIWLW1857-78-76 21:35:00Clear (05/21/2012 16:35:00)[facility] ShibhqiHWDOELZWKC3207-16-38 21:35:00 Test Item Value Reference Range Interpretation Comments UA Spec Grav (test code = UA Spec 1.025 1 N Grav) [facility] ZsjnnszHWSYBXZIML4193-09-28 21:35:00Yellow (05/21/2012 16:35:00) [facility] RgkpztpGIZETZYDIA4369-99-85 21:35:000.2[facility] 2012-05-21 21:35:00Negative (05/21/2012 16:35:00)[facility] 2012-05-21 21:35:00Trace *ABN*(05/21/2012 16:35:00)[facility] 2012-05-21 21:35:00Negative *NA*(05/21/2012 16:35:00)[facility] 2012-05-21 21:35:00Trace *ABN*(05/21/2012 16:35:00)[facility] 2012-05-21 21:35:00 Test Item Value Reference Range Interpretation Comments UA pH (test code = UA pH) 6.0 1 5.0-8.0 N [facility] TwcxdbqPRIRVEVBLP4604-53-10 21:35:00Small *ABN*(05/21/2012 16:35:00) [facility] LhyyuizPLMQHVHQLB2621-28-41 21:35:00Trace *ABN*(05/21/2012 16:35:00) [facility] OvqrtqjVRKFVVVOTL4634-95-85 21:35:000.2[facility]YSIS 2012-05-21 21:35:000-2 /HPF (05/21/2012 16:35:00)[facility] 2012-05-21 21:35:000-2 /HPF (05/21/2012 16:35:00)[facility] 2012-05-21 21:35:00Negative (05/21/2012 16:35:00)[facility] 2012-05-21 21:35:00Few /LPF (05/21/2012 16:35:00)[facility] 2012-05-21 21:35:00Negative (05/21/2012 16:35:00)[facility] 2012-05-21 21:35:00Negative (05/21/2012 16:35:00)[facility] 2012-05-21 21:35:00Occasional /HPF (05/21/2012 16:35:00)[facility] TVYLFZWGOQ0601-33-72 21:35:00Clear (05/21/2012 16:35:00)[facility] VSTXNYIZJH4996-98-03 21:35:00Yellow *NA*(05/21/2012 16:35:00)[facility] HTIUELMOUE8640-85-03 21:35:00 Test Item Value Reference Range Interpretation Comments UA Spec Grav (test code = UA Spec 1.025 1 N Grav) [facility]annINFECTIOUS FIPCVXYJ1869-61-97 21:30:00Positive 1, 2*ABN*(05/21/2012 16:30:00)[facility] HermannSTOOL ILSLJ8124-24-68 21:30:00 Positive *ABN*(05/21/2012 16:30:00)[facility] HermannSTOOL UHDJC6310-88-86 21:30:00Few 4(05/21/2012 16:30:00)[facility] DyiglnoVDIHJRLWOM5742-29-31 21:20:00 0.1[facility] IhxgivtETKPKLCLQF4738-12-04 21:20:0010.6[facility]annHEMATOLOGY 2012-05-21 21:20:000.2[facility] PkkgxtpMGLNYANTYL5598-91-95 21:20:000.1[facility] JacszqoSXVFWBHOSR5392-27-65 21:20:00Negative 8(05/21/2012 16:20:00)[facility] GukxkboZINLWCEIC9719-55-89 21:20:000.837[facility] NjvyhdtMPKIKUFOH4408-22-30 21:20:0056[facility] DusqklsSKZEAOQVY8384-95-54 21:20:0022[facility] MBBNZALBMJ6132-55-56 21:20:67593Nnimawiz MfathuxLBXBIHKAKR5966-57-25 21:20:009.1 [facility] RwvbqmhBRPVKTXHEN0410-81-33 21:20:0032.9[facility]annHEMATOLOGY 2012-05-21 21:20:0015.5[facility] SaoqoxyKMQHOPHNND4415-46-96 21:20:00 Test Item Value Reference Range Interpretation Comments MCH (test code = MCH) 29.8 pg 27.0-31.0 N [facility] DuvhpqiNHSAZXSDVB3030-39-13 21:20:0090.3[facility]annHEMATOLOGY 2012-05-21 21:20:0036.3[facility] BowditvRWRSHELACF6675-52-83 21:20:0012.0[facility] WrtrjixOHTXJJCTBM7001-98-11 21:20:004.02[facility] EtqspgcLUIMIKJOUX5791-42-50 21:20:0011.8[facility] YdconwzRFOYARYPLX0696-67-56 21:20:00 Test Item Value Reference Range Interpretation Comments Tot Cell Ct (test code = Tot Cell Ct) 100 1 [facility] OajtqccOJUUUCOHKP5509-27-24 21:20:00Normal (05/21/2012 16:20:00) [facility] TxivsoiJNQIFKTEOY8246-11-97 21:20:0063.0[facility]annHEMATOLOGY 2012-05-21 21:20:002.0[facility] LsvbuheXKQROYHCSO4721-47-27 21:20:0027.0[facility] DmzwmdjJTMKWWSSOM5748-60-22 21:20:001.0[facility] NuqcskuXGMWEDKNPM4177-07-69 21:20:001.0[facility] FabrhktPMUEDTWJIL8641-55-16 21:20:00Normal (05/21/2012 16:20:00)[facility] LptzhshMYBCYVRMGE2399-19-73 21:20:000.0[facility] GXYOFMVSFT9402-21-75 21:20:006.0[facility] XwxrxlePMVSIMBQTC6863-09-11 21:20:000.7 [facility]
[2022-02-06] MEDS ORDERED: HYDROCODONE/APAP 7.5/325 MG TAB ONE (19:45)
--- NOTE | 2022-02-06 20:09 | RAD REPORT ---
EXAM DESCRIPTION: CT - Head C Spine Mpr Wo Con - 02/06/2022 7:51 pm CLINICAL HISTORY: Head and neck injury status post fall. Head and neck pain COMPARISON: None. TECHNIQUE: Computed axial tomography of the head and cervical spine was obtained. Sagittal and coronal reconstruction was performed. All CT scans are performed using dose optimization technique as appropriate and may include automated exposure control or mA/KV adjustment according to patient size. FINDINGS: An intracranial bleed is not seen. The ventricles are normal in caliber. An extra-axial fl uid collection is not noted.Fluid within the visualized sinuses and mastoids is not seen A cervical fracture is not visualized. No dislocation is noted. Partial fusion C2 and C3. Spondylosis involves the cervical spine Paraseptal emphysema involves the lungs IMPRESSION: No acute intracranial abnormality is seen. A cervical fracture is not visualized. If the patient continues to have symptoms to suggest intracra nial /spinal cord pathology then MRI would be recommended
--- NOTE | 2022-02-06 20:17 | RAD REPORT ---
EXAM DESCRIPTION: CT - Abdomen Pelvis Wo Contrast - 02/06/2022 7:52 pm CLINICAL HISTORY: Abdominal pain COMPARISON: None TECHNIQUE: Computed axial tomography of the abdomen and pelvis was obtained. IV and oral contrast we re not requested. All CT scans are performed using dose optimization technique as appropriate and may include automated exposure control or mA/KV adjustment according to patient size. FINDINGS: The evaluation of solid organs, vessels and bowel is limited secondary to the lack of con trast administration. The liver, spleen, pancreas, adrenals and right kidney appear grossly normal. 5.1 centimeter left renal cyst. There is no evidence of diverticulitis. Cholecystectomy Minimal stranding adjacent to the hepatic flexure of the colon IMPRESSION: Minimal stranding adjacent to hepatic flexure of the colon is a nonspecific finding but could indicate minimal colonic inflammation.
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
[2022-02-06] MEDS ORDERED: LIDOCAINE 4% PATCH ONE (20:53)
[2022-02-06 21:02] VITALS: TEMP 98.6; O2SAT 98
[2022-02-06 21:04] VITALS: BP 139/86
== END 2022-02-06 20:53 | disposition home or self-care (01) ==
LOC: ER 17:32
DX: R51.9 Headache, unspecified (principal); M54.50 Low back pain, unspecified; M54.2 Cervicalgia; F17.210 Nicotine dependence, cigarettes, uncomplicated; I10 Essential (primary) hypertension; I25.2 Old myocardial infarction; Z95.818 Presence of other cardiac implants and grafts; Z88.6 Allergy status to analgesic agent
CPT/HCPCS: 70450; 72125; 74176; 99284; J2001